=== PATIENT | female | born 1975 | race Caucasian/White ===

== ENCOUNTER 2021-11-25 12:05 | Emergency (ER) | payer BC, SELFPAY ==
[2021-11-25 12:20] VITALS: BP 109/46; PULSE 70; RESP 16; TEMP 36.4; O2SAT 100; BMI 45.6
--- NOTE | 2021-11-25 12:52 | CRLHL7_ITS ---
For Patients: As a result of the Century Cures Act, medical imaging exams and procedure reports are released immediately into your electronic medical record. You may view this report before your referring provider. If you have questions, please contact your health care provider. INDICATION: Knee pain. TECHNIQUE: Right knee 3 views. COMPARISON: None. FINDINGS: Bones: Alignment is normal. No fractures or bone lesions. Joint spaces: The joint spaces are maintained. Small osseous densities project from the lateral tibial condyle and inferior patella, possibly osteophytes. Soft tissues: Unremarkable. IMPRESSION: No findings to explain pain. Dictated by Wilber Holloway MD @ 11/25/2021 1:23:08 PM (Electronically Signed)
--- NOTE | 2021-11-25 12:55 | ED_ITS ---
HPI - General Adult General Time Seen by Provider: 12:55 Date Seen: 11/25/21 Chief complaint: Extremity Pain/Injury, Lower Stated complaint: Right knee pain Time Seen by Provider: 11/25/21 12:11 Source: patient Mode of arrival: ambulatory Limitations: no limitations History of Present Illness HPI narrative: Patient is a 38-year-old female who reports an accident about 5 months ago she strained her knee, and has been hurting ever since, she finally decided to see a doctor so came to the emergency department. The patient reports no leg swelling or knee swelling, but does have medial joint line pain. 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 No history of surgery on the knee. She denies allergies to medications is generally healthy Related Data Previous Rx's Medication Instructions Recorded ketorolac 10 mg tablet 10 mg PO Q8H #15 tabs 11/25/21 Allergies Allergy/AdvReac Type Severity Reaction Status Date / Time No Known Drug Allergies Allergy Verified 11/25/21 12:20 Review of Systems Status of ROS: Reports: 6 or more systems reviewed and unremarkable except as noted in History and below PFSH PFSH Social History Smoking Status: Never smoker Do you use any of these nicotine containing products: None Second hand tobacco smoke exposure: No How often do you have a drink containing alcohol: never How often do you have six or more drinks on one occasion: Never AUDIT-C Alcohol total score: 0 Non-prescribed substance use: denies use service: No Exam Narrative: Exam Narrative: Objective: The patient has very limited range of motion of the right knee no effusion, she does not appear in marked distress, vital signs unremarkable she is afebrile, there is no redness or warmth of the knee no effusion distal CMS is intact Range of motion of the knee is very limited to flexion-extension she likes to keep it in about 15? of flexion there is some mild medial joint line pain on the right knee distal CMS intact, no calf or ankle swelling or tenderness Const: Vital Signs, click to edit/add: Vital Signs - 24 hr 11/25/21 12:20 Temperature 97.6 F Pulse Rate [Pulse Oximeter] 70 Respiratory Rate 16 Blood Pressure [Le ft Upper Arm] 109/46 L Pulse Oximetry 100 Oxygen Delivery Me thod Room Air Course Vital Signs Vital signs: Initial Vital Signs Temperature 97.6 F 11/25/21 12:20 Temperature Source Temporal Artery Scan 11/25/21 12:20 Pulse Rate 70 11/25/21 12:20 Pulse Rhythm 11/25/21 12:20 Respiratory Rate 16 11/25/21 12:20 Blood Pressure 109/46 L 11/25/21 12:20 Blood Pressure Mean 67 11/25/21 12:20 Blood Pressure Position Supine 11/25/21 12:20 Pulse Oximetry 100 11/25/21 12:20 Oxygen Delivery Method 11/25/21 12:20 Vital Signs Temperature 97.6 F 11/25/21 12:20 Pulse Rate 70 11/25/21 12:20 Respiratory Rate 16 11/25/21 12:20 Blood Pressure 109/46 L 11/25/21 12:20 Pulse Oximetry 100 11/25/21 12:20 Oxygen Delivery Method 11/25/21 12:20 Temperature 97.6 F 11/25/21 12:20 Pulse Rate 70 11/25/21 12:20 Respiratory Rate 16 11/25/21 12:20 Blood Pressure 109/46 L 11/25/21 12:20 Pulse Oximetry 100 11/25/21 12:20 Oxygen Delivery Method 11/25/21 12:20 Medical Decision Making MDM Narrative Medical decision making narrative: Given the patient's history of knee discomfort would get an x-ray of her knee, knee immobilizer, crutches, will give her Toradol 10 mg orally. She needs to see Orthopedics for follow-up, nonweightbearing, crutches, knee immobilizer, icing on a regular basis, Toradol as needed at home, and will give her prescription for this for several days, orthopedic followup will be arranged within the next 5-7 days Addendum: Patient x-rays of the knee by my review look unremarkable other than some degenerative change, she has a posterior fabella. No dislocation. Patient will be given crutches knee immobilizer will be discharged to home on Toradol as needed up, will have staff set up an ortho appointment for the patient within e next 3-5 days light activity recommended ice on the knee Discharge Plan Discharge Clinical Impression: Acute knee pain Patient Disposition: Home, Self-Care Condition: Stable Additional Instructions: Nonweightbearing, use the crutches, using the immobilizer, icing 10 minutes 4 to 5 times a day to the affected area the knee that is tender Toradol 10 mg t.i.d. as needed for 3 days, then may transition to Tylenol or Advil, please set up an orthopedic appointment with the PA in the next 3-5 days for the patient Activity Level: No Weight Bearing Activity Detail: No weight-bearing on the affected knee Discharge Diet: Regular Prescriptions: New ketorolac 10 mg tablet 10 mg PO Q8H Qty: 15 0RF Follow Up/Referrals: Provider,Not a Local [Primary Care Provider] - Stand Alone Forms: [facility] Info Instructions
[2021-11-25] MEDS: KETOROLAC 10 MG TABLET PO (13:13)
--- NOTE | 2021-11-25 14:33 | ED.NURSE ---
all communication done via staff interpreter on a stick
== END 2021-11-25 14:25 | disposition home or self-care (01) ==
PROVIDERS: Emergency Provider Family Medicine
DX: M25.561 Pain in right knee (principal)
CPT/HCPCS: 73562; 99284; A9270

== ENCOUNTER 2022-02-04 09:43 | Outpatient (CLI) | payer BC, SELFPAY ==
--- NOTE | 2022-02-04 09:45 | CRLHL7_ITS ---
For Patients: As a result of the Century Cures Act, medical imaging exams and procedure reports are released immediately into your electronic medical record. You may view this report before your referring provider. If you have questions, please contact your health care provider. BILATERAL DIAGNOSTIC MAMMOGRAM WITH COMPUTER-AIDED DETECTION AND TOMOSYNTHESIS RIGHT BREAST ULTRASOUND CLINICAL HISTORY: RIGHT outer breast pain, most severe at the 9 o???clock position. No lump. TECHNIQUE: These mammographic images have been obtained using full-field digital technique. These mammographic images were interpreted with the benefit of computer-aided detection. Breast Tomosynthesis was used in this interpretation. RIGHT breast ultrasound was performed. COMPARISON FILM: None. BREAST COMPOSITION: There are scattered areas of fibroglandular density. FINDINGS: No mass, suspicious microcalcifications, architectural distortion, skin thickening, or other suspicious findings. Targeted RIGHT breast ultrasound in the outer RIGHT breast specifically at the 9 o???clock position 9 cm from the nipple is unremarkable. IMPRESSION: 1. No mammographic evidence of malignancy. 2. Targeted RIGHT outer breast ultrasound is unremarkable. ASSESSMENT: BI-RADS Category 1: Negative RECOMMENDATION: Recommend clinical follow-up and annual screening mammography. A lay language report of this examination will be provided to the patient. Cleveland Lambert M.D. Diagnostic/Musculoskeletal Radiologist [email or web address] BANDAR/pollo PT/Dictated by: Cleveland Lambert MD @ 02/04/2022 11:46:00 AM (Electronically Signed)
--- NOTE | 2022-02-04 10:15 | CRLHL7_ITS ---
For Patients: As a result of the Cures Act, medical imaging exams and procedure reports are released immediately into your electronic medical record. You may view this report before your referring provider. If you have questions, please contact your health care provider. PLEASE SEE BILATERAL DIAGNOSTIC MAMMOGRAM SAME DAY. CRL:pollo PT/Dictated by: Cleveland Lambert MD @ 02/04/2022 11:50:00 AM (Electronically Signed)
== END 2022-02-04 09:44 | disposition home or self-care (01) ==
LOC: MAMMO 09:46
PROVIDERS: Visit Provider Obstetrics & Gynecology
DX: N64.4 Mastodynia (principal)
CPT/HCPCS: 76642; 77066; G0279

== ENCOUNTER 2022-05-11 20:53 | Emergency (ER) | payer SELFPAY ==
[2022-05-11 21:10] VITALS: BP 141/81; PULSE 78; RESP 14; TEMP 36.4; O2SAT 100; BMI 41.0
[2022-05-11 21:29] LABS: Appearance Urine Slightly Cloudy (Clear); Bilirubin Urine Negative (Negative); Blood Urine Negative (Negative); Color Urine Yellow (Yellow); Glucose Urine 3+ (Negative); Ketones Urine Negative (Negative); Leukocyte Esterase Urine Negative (Negative); Nitrite Urine Negative (Negative); Protein Urine Negative (Negative); Specific Gravity Urine <= 1.005 (1.000-1.030); Urobilinogen Urine 0.2 (0.2-1.0); pH Urine 5.5 (5.0-8.5)
--- NOTE | 2022-05-11 21:38 | ED.GENADULT ---
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 For the last 2 weeks she has had a bitemporal headache with mild nausea, also night urinary frequency, some blurred vision. Has been checking her blood sugar with friends meter and notes is been high, over 500 tonight. Patient has no prior history or diagnosis of diabetes. Denies abdominal pain or vomiting. No diarrhea. No numbness or tingling in arms or legs. She has been taking Tylenol for her headaches with minimal improvement. Related Data Home Medications Medication Instructions Recorded Confirmed acetaminophen 325 mg capsule 325 mg PO ONCE PRN 01/31/22 01/31/22 (Tylenol) ibuprofen 400 mg tablet 400 mg PO Q8H 01/31/22 01/31/22 Previous Rx's Medication Instructions Recorded metformin 500 mg tablet 500 mg PO BID #60 tabs 05/11/22 Allergies Allergy/AdvReac Type Severity Reaction Status Date / Time No Known Drug Allergies Allergy Verified 01/31/22 13:11 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, no alcohol Smoking Status: Never smoker Do you use any of these nicotine containing products: None Second hand tobacco smoke exposure: No How often do you have a drink containing alcohol: never How often do you have six or more drinks on one occasion: Never AUDIT-C Alcohol total score: 0 Non-prescribed substance use: denies use service: No Exam Narrative: Exam Narrative: General: Well-developed and well-nourished, no acute distress Head: Atraumatic and normocephalic Eyes: Pupils are equal reactive, extraocular motions intact, conjunctiva clear ENT: External nose and ears are normal, posterior pharynx without erythema or exudate Neck: No midline cervical tenderness, full spontaneous range of motion the neck, trachea midline, no adenopathy Heart: Regular rate and rhythm no murmurs or thrills Lungs: Clear to auscultation bilaterally without wheezes or crackles Abdomen: Soft, nontender, nondistended with active bowel sounds Musculoskeletal: No tenderness, deformity, or edema Neurologic: Awake, alert, and oriented x3, no gross focal neurologic deficits, cranial nerves intact as tested Psych: Mood and affect are appropriate Skin: No rashes Const: Vital Signs, click to edit/add: Vital Signs - 24 hr 05/11/22 21:10 Temperature 97.6 F Pulse Rate [Pulse Oximeter] 78 Respiratory Rate 14 Blood Pressure [Le ft Upper Arm] 141/81 H Pulse Oximetry 100 Oxygen Delivery Me thod Room Air Course Course Hospital Course: Patient presents today with headache, frequent urination, nausea. Reports elevated blood sugars on a friend's meter for the last 2 weeks. On exam here, vitally stable, no abdominal tenderness, neurologically intact. No history of head injury, head CT is not indicated at this time. Symptoms are most consistent with undiagnosed nor newly diagnosed diabetes. Labs and fluids are ordered, Toradol and Zofran for pain and nausea. If labs not demonstrate evidence for DKA and headache is improved after treatment, patient be started on metformin and close follow-up primary care improved. Reevaluation(s) Reevaluation #1: Labs independently interpreted by me demonstrate mild leukocytosis, urinalysis with glucose but no ketones. Remaining labs are pending. Time: 22:07 Reevaluation #2: Repeat blood glucose is improved and patient is stable for discharge. No evidence of DKA or HHS, renal function reassuring, hepatic panel is normal. Time: 23:53 Vital Signs Vital signs: Initial Vital Signs Temperature 97.6 F 05/11/22 21:10 Temperature Source Temporal Artery Scan 05/11/22 21:10 Pulse Rate 78 05/11/22 21:10 Pulse Rhythm 05/11/22 21:10 Respiratory Rate 14 05/11/22 21:10 Blood Pressure 141/81 H 05/11/22 21:10 Blood Pressure Mean 101 05/11/22 21:10 Blood Pressure Position Sitting 05/11/22 21:10 Pulse Oximetry 100 05/11/22 21:10 Oxygen Delivery Method 05/11/22 21:10 Vital Signs Temperature 97.6 F 05/11/22 21:10 Pulse Rate 78 05/11/22 21:10 Respiratory Rate 14 05/11/22 21:10 Blood Pressure 141/81 H 05/11/22 21:10 Pulse Oximetry 100 05/11/22 21:10 Oxygen Delivery Method 05/11/22 21:10 Temperature 97.6 F 05/11/22 21:10 Pulse Rate 78 05/11/22 21:10 Respiratory Rate 14 05/11/22 21:10 Blood Pressure 141/81 H 05/11/22 21:10 Pulse Oximetry 100 05/11/22 21:10 Oxygen Delivery Method 05/11/22 21:10 Medical Decision Making Lab Data Labs: Lab Results 05/11/22 05/11/22 05/11/22 Range/Units 21:20 21:50 21:50 WBC 3.63 L (4.50-11.00) K/uL RBC 4.58 (4.00-5.20) m/uL Hgb 11.8 L (12.0-16.0) gm/dL Hct 34.1 (33.0-51.0) % MCV 75 L (80-100) fL MCH 26 (26-34) pg MCHC 35 (32-36) gm/dL RDW Coeff of [place] 14.4 (11.5-15.5) % Plt Count 107 L (140-440) K/uL Neut % (Auto) 59.4 (42.0-72.0) % Lymph % (Auto) 28.9 (20-44) % Cache % (Auto) 8.3 (0.0-11.0) % Eos % (Auto) 2.5 (0.0-7.0) % Baso % (Auto) 0.6 (0.0-3.0) % Neut # (Auto) 2.20 (1.7-7.0) K/uL Lymph # (Auto) 1.00 (0.90-2.90) K/uL Cache # (Auto) 0.30 (0.00-0.90) K/UL Eos # (Auto) 0.10 (0.00-0.50) K/uL Baso # (Auto) 0.00 (0.00-0.30) K/uL Sodium 133 L (135-149) mmol/L Potassium 3.8 (3.6-5.1) mmol/L Chloride 101 (96-114) mmol/L Carbon Dioxide 23 (20-32) mmol/L BUN 9 (5-24) mg/dL Creatinine 0.4 L (0.5-1.5) mg/dL Estimated Creat Clear 225.39 Estimated GFR 122 ml/min Glucose 538 H* (60-115) mg/dL Hemoglobin A1c (0-5.6) % Calcium 8.6 (8.4-10.6) mg/dL Total Bilirubin (0.1-1.5) mg/dL Direct Bilirubin (0.0-0.5) mg/dL AST (12-35) U/L ALT (4-35) U/L Alkaline Phosphatase (40-150) U/L Total Protein (6.0-8.3) g/dL Albumin (3.3-5.0) g/dL Urine Color Yellow (Yellow) Urine Appearance Slightly Cloudy A (Clear) Urine pH 5.5 (5.0-8.5) Ur Specific [place] <= 1.005 (1.000-1.030) Urine Protein Negative (Negative) Urine Glucose (UA) 3+ A (Negative) Urine Ketones Negative (Negative) Urine Blood Negative (Negative) Urine Nitrite Negative (Negative) Urine Bilirubin Negative (Negative) Urine Urobilinogen 0.2 (0.2-1.0) Ur Leukocyte Esterase Negative (Negative) Urine RBC 0-2 (0-2) Urine WBC 0-2 (0-5) Ur Squamous Epith Cells Few (None-Few) Urine Bacteria None (None) 05/11/22 05/11/22 Range/Units 21:50 21:50 WBC (4.50-11.00) K/uL RBC (4.00-5.20) m/uL Hgb (12.0-16.0) gm/dL Hct (33.0-51.0) % MCV (80-100) fL MCH (26-34) pg MCHC (32-36) gm/dL RDW Coeff of [place] (11.5-15.5) % Plt Count (140-440) K/uL Neut % (Auto) (42.0-72.0) % Lymph % (Auto) (20-44) % Cache % (Auto) (0.0-11.0) % Eos % (Auto) (0.0-7.0) % Baso % (Auto) (0.0-3.0) % Neut # (Auto) (1.7-7.0) K/uL Lymph # (Auto) (0.90-2.90) K/uL Cache # (Auto) (0.00-0.90) K/UL Eos # (Auto) (0.00-0.50) K/uL Baso # (Auto) (0.00-0.30) K/uL Sodium (135-149) mmol/L Potassium (3.6-5.1) mmol/L Chloride (96-114) mmol/L Carbon Dioxide (20-32) mmol/L BUN (5-24) mg/dL Creatinine (0.5-1.5) mg/dL Estimated Creat Clear Estimated GFR ml/min Glucose (60-115) mg/dL Hemoglobin A1c 10.39 H (0-5.6) % Calcium (8.4-10.6) mg/dL Total Bilirubin 0.6 (0.1-1.5) mg/dL Direct Bilirubin 0.2 (0.0-0.5) mg/dL AST 43 H (12-35) U/L ALT 45 H (4-35) U/L Alkaline Phosphatase 133 (40-150) U/L Total Protein 8.2 (6.0-8.3) g/dL Albumin 4.2 (3.3-5.0) g/dL Urine Color (Yellow) Urine Appearance (Clear) Urine pH (5.0-8.5) Ur Specific [place] (1.000-1.030) Urine Protein (Negative) Urine Glucose (UA) (Negative) Urine Ketones (Negative) Urine Blood (Negative) Urine Nitrite (Negative) Urine Bilirubin (Negative) Urine Urobilinogen (0.2-1.0) Ur Leukocyte Esterase (Negative) Urine RBC (0-2) Urine WBC (0-5) Ur Squamous Epith Cells (None-Few) Urine Bacteria (None) Discharge Plan Discharge Clinical Impression: Diabetes mellitus, new onset Patient Disposition: Home, Self-Care Condition: Stable Instructions: Type 2 Diabetes in Adults: New Diagnosis (DC), Meal Planning with the Plate Method (DC), Diabetes and Nutrition (ED), How to Check your Blood Sugar (ED) Additional Instructions: Start taking metformin for diabetes as prescribed. Follow-up with your doctor this week for further treatment. Activity Level: No Restrictions Discharge Diet: Diabetic Prescriptions: New metformin 500 mg tablet 500 mg PO BID Qty: 60 2RF No Action acetaminophen [Tylenol] 325 mg capsule 325 mg PO ONCE PRN ibuprofen 400 mg tablet 400 mg PO Q8H Follow Up/Referrals: Provider,Not a Local [Primary Care Provider] - Stand Alone Forms: [employer] Info Instructions
[2022-05-11 21:41] LABS: RBC Urine 0-2 (0-2); Squamous Epithelial Cell Urine Few (None-Few); WBC Urine 0-2 (0-5)
[2022-05-11 21:55] LABS: Basophils Percent Auto 0.6 % (0.0-3.0); Eosinophils Percent Auto 2.5 % (0.0-7.0); Hematocrit 34.1 % (33.0-51.0); Hemoglobin* 11.8 gm/dL (12.0-16.0); Immature Granulocytes Pct Auto 0.3 %; Lymphocytes Percent Auto 28.9 % (20-44); Mean Corpuscular HGB Conc 35 gm/dL (32-36); Mean Corpuscular Hemoglobin 26 pg (26-34); Mean Corpuscular Volume 75 fL (80-100); Monocytes Percent Auto 8.3 % (0.0-11.0); Neutrophils Percent Auto 59.4 % (42.0-72.0); Platelet Count* 107 K/uL (140-440); RDW Coefficient of Variation % 14.4 % (11.5-15.5); Red Blood Count 4.58 m/uL (4.00-5.20); Slide Review Reflex No; White Blood Count* 3.63 K/uL (4.50-11.00)
[2022-05-11] MEDS: KETOROLAC 15 MG/ML inj IVP (21:56)
[2022-05-11] MEDS: ONDANSETRON 2 MG/ML inj 4 MG IVP (21:56)
[2022-05-11] MEDS: 0.9 % SODIUM CHLORIDE 1000 ml 1,000 ML IV (21:57)
[2022-05-11 22:11] LABS: Chloride* 101 mmol/L (96-114); Potassium* 3.8 mmol/L (3.6-5.1); Sodium* 133 mmol/L (135-149)
[2022-05-11 22:12] LABS: Albumin* 4.2 g/dL (3.3-5.0)
[2022-05-11 22:14] LABS: Blood Urea Nitrogen* 9 mg/dL (5-24); Carbon Dioxide* 23 mmol/L (20-32); Creatinine* 0.4 mg/dL (0.5-1.5); Est. Creatinine Clearance* 225.39; Estimated Glomerular Filt Rate 122 ml/min
[2022-05-11 22:15] LABS: Alkaline Phosphatase* 133 U/L (40-150); Aspartate Amino Transferase* 43 U/L (12-35); Bilirubin Direct* 0.2 mg/dL (0.0-0.5); Bilirubin Total* 0.6 mg/dL (0.1-1.5); Calcium* 8.6 mg/dL (8.4-10.6); Total Protein* 8.2 g/dL (6.0-8.3)
[2022-05-11 22:16] LABS: Alanine Aminotransferase* 45 U/L (4-35)
[2022-05-11 22:23] LABS: Glucose* 538 mg/dL (60-115)
--- NOTE | 2022-05-11 22:23 | ED.NURSE ---
Critical result received from lab: glucose 538. updated.
[2022-05-11 22:30] VITALS: BP 114/77; PULSE 69; RESP 16; O2SAT 99
[2022-05-11 23:00] VITALS: BP 129/72; PULSE 67; RESP 18; O2SAT 97
[2022-05-11 23:11] LABS: Hemoglobin A1C* 10.39 % (0-5.6)
== END 2022-05-12 00:10 | disposition home or self-care (01) ==
PROVIDERS: Emergency Provider Family Medicine
DX: E11.65 Type 2 diabetes mellitus with hyperglycemia (principal)
CPT/HCPCS: 36415; 80048; 80076; 81001; 82962; 83036; 85025; 96361; 96374; 96375; 99284; J1885; J2405; J7030

== ENCOUNTER 2022-06-09 21:25 | Emergency (ER) | payer SELFPAY ==
[2022-06-09 21:43] VITALS: BP 161/93; PULSE 84; RESP 18; TEMP 36.7; O2SAT 99; BMI 35.9
--- NOTE | 2022-06-09 21:46 | ED.GENADULT ---
HPI - General Adult General Time Seen by Provider: 21:46 Date Seen: 06/09/22 Chief complaint: Heartburn/Gastritis Stated complaint: Vomiting blood,Chest Pain Time Seen by Provider: 06/09/22 21:46 Source: patient, family, RN notes reviewed, old records reviewed and personal loan specialist Mode of arrival: ambulatory Limitations: language barrier History of Present Illness HPI narrative: 46-year-old female with recently diagnosed diabetes who comes in today with nausea, vomiting, mid abdominal pain. Patient notes that this evening about an hour prior to coming the emergency department she vomited with some blood. She has upper abdominal pain. No diarrhea. She has had similar in the past but not for little while. Does not take any medication for this. Some lightheadedness yesterday along with a headache. Denies black or tarry stools. Related Data Home Medications Medication Instructions Recorded Confirmed ibuprofen 400 mg tablet 400 mg PO Q8H 01/31/22 06/09/22 pantoprazole 40 mg tablet,delayed 40 mg PO DAILY 06/04/22 06/09/22 release Previous Rx's Medication Instructions Recorded metformin 500 mg tablet 500 mg PO BID #60 tabs 05/11/22 sucralfate 1 gram tablet (Carafate) 1 g PO QID #40 tabs 06/09/22 Allergies Allergy/AdvReac Type Severity Reaction Status Date / Time No Known Drug Allergies Allergy Verified 06/09/22 21:46 Review of Systems Status of ROS: Reports: 10 or more systems reviewed and unremarkable except as noted in History and below PFSH PFS Surgical History History of section History of laparoscopic cholecystectomy History of lumbar surgery History of tubal ligation Social History , CLAIR) Narrative: , 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, 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, 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, 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 Smoking Status: Never smoker Do you use any of these nicotine containing products: None Second hand tobacco smoke exposure: No How often do you have a drink containing alcohol: never How often do you have six or more drinks on one occasion: Never AUDIT-C Alcohol total score: 0 Non-prescribed substance use: denies use service: No Exam Narrative: Exam Narrative: General: Well-developed and well-nourished, no acute distress Head: Atraumatic and normocephalic Eyes: Pupils are equal reactive, extraocular motions intact, conjunctiva clear ENT: External nose and ears are normal, posterior pharynx without erythema or exudate Neck: No midline cervical tenderness, full spontaneous range of motion the neck, trachea midline, no adenopathy Heart: Tachycardic but regular Lungs: Clear to auscultation bilaterally without wheezes or crackles Abdomen: Soft, epigastric and diffuse upper abdominal tenderness, nondistended with active bowel sounds Musculoskeletal: No tenderness, deformity, or edema Neurologic: Awake, alert, and oriented x3, no gross focal neurologic deficits, cranial nerves intact as tested Psych: Mood and affect are appropriate Skin: No rashes Const: Vital Signs, click to edit/add: Vital Signs - 24 hr 06/09/22 21:43 06/09/22 22:27 06/09/22 21:55 Temperature 98.0 F Pulse Rate [Right Pulse Oximeter] 84 94 Respiratory Rate 18 18 Blood Pressure [Ri ght Upper Arm] 161/93 H 148/78 H Pulse Oximetry 99 98 97 Oxygen Delivery Me thod Room Air Course Course Hospital Course: Patient seen examined, prior records reviewed. Patient presents with upper abdominal pain and vomiting with some blood. On exam here, tachycardic, appears uncomfortable, upper abdominal tenderness. Recent diagnosis of diabetes, has a history of reflux. Symptoms could be from gastritis or early ulcer, consider pancreatitis as well. Labs, fluids, Zofran, Dilaudid, and Protonix as well as CT scan are ordered. Reevaluation(s) Reevaluation #1: Labs independently interpreted by me demonstrate hemoglobin 11.8 which is stable from prior visit, normal white blood cell count. Basic panel demonstrates elevated glucose, otherwise reassuring. Hepatic function panel with normal bilirubin, slight elevation in the AST and ALT but alkaline phosphatase is normal and lipase is normal. Urinalysis without ketones, no evidence for DKA. CT scan is pending. Suspect acute gastritis or possible early ulcer. As patient is finally stable here with no further episodes of hematemesis, if CT scan is reassuring patient can be discharged with outpatient follow-up. Time: 22:45 Reevaluation #2: CT scan independently interpreted by me does not demonstrate any acute inflammatory changes around the pancreas, stomach is full, no obstruction. Radiologist notes mild thickening of the greater curvature which may reflect gastritis. This certainly is consistent with patient's symptoms. She is stable for discharge with Zofran, Carafate, continue Protonix and follow up with primary care. Time: 23:33 Vital Signs Vital signs: Initial Vital Signs Temperature 98.0 F 06/09/22 21:43 Temperature Source Temporal Artery Scan 06/09/22 21:43 Pulse Rate 84 06/09/22 21:43 Respiratory Rate 18 06/09/22 21:43 Blood Pressure 161/93 H 06/09/22 21:43 Blood Pressure Mean 115 06/09/22 21:43 Blood Pressure Position Sitting 06/09/22 21:43 Pulse Oximetry 99 06/09/22 21:43 Oxygen Delivery Method 06/09/22 21:43 Vital Signs Temperature 98.0 F 06/09/22 21:43 Pulse Rate 84 06/09/22 21:43 Respiratory Rate 18 06/09/22 21:43 Blood Pressure 161/93 H 06/09/22 21:43 Pulse Oximetry 99 06/09/22 21:43 Oxygen Delivery Method 06/09/22 21:43 Temperature 98.0 F 06/09/22 21:43 Pulse Rate 94 06/09/22 22:27 Respiratory Rate 18 06/09/22 22:27 Blood Pressure 148/78 H 06/09/22 22:27 Pulse Oximetry 98 06/09/22 22:27 Oxygen Delivery Method 06/09/22 21:43 Medical Decision Making Medical Records Medical records reviewed: Yes I reviewed the patient's medical records Lab Data Lab results reviewed: Yes I reviewed the patient's lab results Labs: Lab Results 06/09/22 06/09/22 06/09/22 Range/Units 21:45 21:45 21:45 WBC 5.91 (4.50-11.00) K/uL RBC 4.62 (4.00-5.20) m/uL Hgb 11.8 L (12.0-16.0) gm/dL Hct 34.8 (33.0-51.0) % MCV 75 L (80-100) fL MCH 26 (26-34) pg MCHC 34 (32-36) gm/dL RDW Coeff of [place]illa 14.5 (11.5-15.5) % Plt Count 115 L (140-440) K/uL Neut % (Auto) 79.9 H (42.0-72.0) % Lymph % (Auto) 10.5 L (20-44) % Miner % (Auto) 8.6 (0.0-11.0) % Eos % (Auto) 0.7 (0.0-7.0) % Baso % (Auto) 0.3 (0.0-3.0) % Neut # (Auto) 4.70 (1.7-7.0) K/uL Lymph # (Auto) 0.60 L (0.90-2.90) K/uL Miner # (Auto) 0.50 (0.00-0.90) K/UL Eos # (Auto) 0.04 (0.00-0.50) K/uL Baso # (Auto) 0.02 (0.00-0.30) K/uL VBG pH 7.389 (7.32-7.43) VBG pCO2 46 (40-50) mmHG VBG pO2 32.0 (25-47) mmHG VBG HCO3 28 (21-28) mmol/L Sodium (135-149) mmol/L Potassium (3.6-5.1) mmol/L Chloride (96-114) mmol/L Carbon Dioxide (20-32) mmol/L BUN (5-24) mg/dL Creatinine (0.5-1.5) mg/dL Estimated Creat Clear Estimated GFR ml/min Glucose (60-115) mg/dL Calcium (8.4-10.6) mg/dL Total Bilirubin (0.1-1.5) mg/dL Direct Bilirubin (0.0-0.5) mg/dL AST (12-35) U/L ALT (4-35) U/L Alkaline Phosphatase (40-150) U/L Total Protein (6.0-8.3) g/dL Albumin (3.3-5.0) g/dL Lipase (23-300) U/L Urine Color (Yellow) Urine Appearance (Clear) Urine pH (5.0-8.5) Ur Specific [place] (1.000-1.030) Urine Protein (Negative) Urine Glucose (UA) (Negative) Urine Ketones (Negative) Urine Blood (Negative) Urine Nitrite (Negative) Urine Bilirubin (Negative) Urine Urobilinogen (0.2-1.0) Ur Leukocyte Esterase (Negative) Urine RBC (0-2) Urine WBC (0-5) Ur Squamous Epith Cells (None-Few) Urine Bacteria (None) Blood Type O Positive Antibody Screen NEGATIVE 06/09/22 06/09/22 Range/Units 21:45 22:18 WBC (4.50-11.00) K/uL RBC (4.00-5.20) m/uL Hgb (12.0-16.0) gm/dL Hct (33.0-51.0) % MCV (80-100) fL MCH (26-34) pg MCHC (32-36) gm/dL RDW Coeff of Kamilla (11.5-15.5) % Plt Count (140-440) K/uL Neut % (Auto) (42.0-72.0) % Lymph % (Auto) (20-44) % Miner % (Auto) (0.0-11.0) % Eos % (Auto) (0.0-7.0) % Baso % (Auto) (0.0-3.0) % Neut # (Auto) (1.7-7.0) K/uL Lymph # (Auto) (0.90-2.90) K/uL Miner # (Auto) (0.00-0.90) K/UL Eos # (Auto) (0.00-0.50) K/uL Baso # (Auto) (0.00-0.30) K/uL VBG pH (7.32-7.43) VBG pCO2 (40-50) mmHG VBG pO2 (25-47) mmHG VBG HCO3 (21-28) mmol/L Sodium 136 (135-149) mmol/L Potassium 3.5 L (3.6-5.1) mmol/L Chloride 103 (96-114) mmol/L Carbon Dioxide 27 (20-32) mmol/L BUN 10 (5-24) mg/dL Creatinine 0.5 (0.5-1.5) mg/dL Estimated Creat Clear 157.65 Estimated GFR 116 ml/min Glucose 249 H (60-115) mg/dL Calcium 8.8 (8.4-10.6) mg/dL Total Bilirubin 0.7 (0.1-1.5) mg/dL Direct Bilirubin 0.2 (0.0-0.5) mg/dL AST 49 H (12-35) U/L ALT 46 H (4-35) U/L Alkaline Phosphatase 122 (40-150) U/L Total Protein 8.4 H (6.0-8.3) g/dL Albumin 4.3 (3.3-5.0) g/dL Lipase 99 (23-300) U/L Urine Color Yellow (Yellow) Urine Appearance Slightly Cloudy A (Clear) Urine pH 6.0 (5.0-8.5) Ur Specific [place] 1.015 (1.000-1.030) Urine Protein Negative (Negative) Urine Glucose (UA) Trace A (Negative) Urine Ketones Negative (Negative) Urine Blood 2+ A (Negative) Urine Nitrite Negative (Negative) Urine Bilirubin Negative (Negative) Urine Urobilinogen 1.0 (0.2-1.0) Ur Leukocyte Esterase Trace A (Negative) Urine RBC 5-10 A (0-2) Urine WBC 2-5 (0-5) Ur Squamous Epith Cells Few (None-Few) Urine Bacteria Few A (None) Blood Type Antibody Screen Discharge Plan Discharge Clinical Impression: Gastritis Patient Disposition: Home, Self-Care Condition: Stable Instructions: Gastritis (DC), Diet for Stomach Ulcers and Gastritis (ED) Additional Instructions: Continue Protonix (pantoprazole) Avoid caffeine and carbonated beverages Avoid alcohol Do not take nonsteroidal anti-inflammatories such as ibuprofen Start Carafate Activity Level: No Restrictions Discharge Diet: Diabetic Prescriptions: New sucralfate [Carafate] 1 gram tablet 1 g PO QID Qty: 40 0RF No Action ibuprofen 400 mg tablet 400 mg PO Q8H pantoprazole 40 mg tablet,delayed release (DR/EC) 40 mg PO DAILY metformin 500 mg tablet 500 mg PO BID Qty: 60 2RF Follow Up/Referrals: Provider,Not a Local [Primary Care Provider] - Stand Alone Forms: [employer] Info Instructions
[2022-06-09 21:55] VITALS: O2SAT 97
--- NOTE | 2022-06-09 21:55 | CRLHL7_ITS ---
For Patients: As a result of the Century Cures Act, medical imaging exams and procedure reports are released immediately into your electronic medical record. You may view this report before your referring provider. If you have questions, please contact your health care provider. INDICATION: Upper abdominal pain, vomiting. TECHNIQUE: CT abdomen and pelvis acquired with 79 mL Isovue 370 contrast. COMPARISON: CT abdomen/pelvis dated 03/26/2021. FINDINGS: Lower chest: No focal consolidation. Liver: Mild nodularity of the liver contour, compatible with cirrhotic changes. Gallbladder and bile ducts: Postcholecystectomy. Pancreas: Unremarkable. Spleen: Unremarkable. Adrenal glands: Unremarkable. Kidneys: Kidneys enhance symmetrically, without hydronephrosis. Retroperitoneum: No lymphadenopathy. Bowel and mesentery: The bowel is nonobstructed. Normal appendix. No significant ascites. No hiatal hernia. Mild thickening of the greater curvature of the stomach. No pneumoperitoneum. Bladder: Unremarkable for degree of distension. Reproductive organs: Unremarkable. Pelvic lymph nodes: No lymphadenopathy. Vessels: Few scattered atherosclerotic calcifications. Abdominal wall: No acute abdominal wall abnormality. Bones: Severe multilevel degenerative changes of the spine. Postsurgical changes in the posterior elements of the thoracolumbar spine. IMPRESSION: 1. Mild thickening of the greater curvature of the stomach, nonspecific, may reflect gastritis. 2. Morphologic sequelae of cirrhosis. Please note that all CT scans at this facility use dose modulation, iterative reconstruction, and/or weight-based dosing when appropriate to reduce radiation dose to as low as reasonably achievable. Dictated by William Malone MD @ 06/09/2022 11:32:23 PM (Electronically Signed)
[2022-06-09 22:08] LABS: HCO3 VBG 28 mmol/L (21-28); PCO2 VBG 46 mmHG (40-50); pH VBG 7.389 (7.32-7.43)
[2022-06-09 22:11] LABS: Basophils Absolute Auto 0.02 K/uL (0.00-0.30); Basophils Percent Auto 0.3 % (0.0-3.0); Eosinophils Absolute Auto 0.04 K/uL (0.00-0.50); Eosinophils Percent Auto 0.7 % (0.0-7.0); Hematocrit 34.8 % (33.0-51.0); Hemoglobin* 11.8 gm/dL (12.0-16.0); Lymphocytes Percent Auto 10.5 % (20-44); Mean Corpuscular HGB Conc 34 gm/dL (32-36); Mean Corpuscular Hemoglobin 26 pg (26-34); Mean Corpuscular Volume 75 fL (80-100); Monocytes Percent Auto 8.6 % (0.0-11.0); Neutrophils Percent Auto 79.9 % (42.0-72.0); Platelet Count* 115 K/uL (140-440); RDW Coefficient of Variation % 14.5 % (11.5-15.5); Red Blood Count 4.62 m/uL (4.00-5.20); Slide Review Reflex No; White Blood Count* 5.91 K/uL (4.50-11.00)
[2022-06-09 22:25] LABS: Albumin* 4.3 g/dL (3.3-5.0)
[2022-06-09 22:26] LABS: Chloride* 103 mmol/L (96-114); Potassium* 3.5 mmol/L (3.6-5.1); Sodium* 136 mmol/L (135-149)
[2022-06-09 22:27] VITALS: BP 148/78; PULSE 94; RESP 18; O2SAT 98
[2022-06-09 22:28] LABS: Appearance Urine Slightly Cloudy (Clear); Bilirubin Urine Negative (Negative); Blood Urine 2+ (Negative); Color Urine Yellow (Yellow); Glucose Urine Trace (Negative); Ketones Urine Negative (Negative); Leukocyte Esterase Urine Trace (Negative); Nitrite Urine Negative (Negative); Protein Urine Negative (Negative); Specific Gravity Urine 1.015 (1.000-1.030)
[2022-06-09 22:28] LABS: Alkaline Phosphatase* 122 U/L (40-150); Aspartate Amino Transferase* 49 U/L (12-35); Bilirubin Direct* 0.2 mg/dL (0.0-0.5); Bilirubin Total* 0.7 mg/dL (0.1-1.5); Blood Urea Nitrogen* 10 mg/dL (5-24); Carbon Dioxide* 27 mmol/L (20-32); Creatinine* 0.5 mg/dL (0.5-1.5); Est. Creatinine Clearance* 157.65; Estimated Glomerular Filt Rate 116 ml/min; Total Protein* 8.4 g/dL (6.0-8.3)
[2022-06-09 22:29] LABS: Alanine Aminotransferase* 46 U/L (4-35); Calcium* 8.8 mg/dL (8.4-10.6); Glucose* 249 mg/dL (60-115); Lipase* 99 U/L (23-300)
[2022-06-09] MEDS: 0.9 % SODIUM CHLORIDE 1000 ml 1,000 ML IV (22:30)
[2022-06-09] MEDS: HYDROmorphone 0.5 mg/0.5 ml inj IVP (22:31)
[2022-06-09] MEDS: ONDANSETRON 2 MG/ML inj 4 MG IVP (22:31)
[2022-06-09] MEDS: PANTOPRAZOLE SODIUM 40 MG INJ IVP (22:31)
[2022-06-09 22:50] LABS: Bacteria Urine Few; Squamous Epithelial Cell Urine Few (None-Few)
== END 2022-06-10 00:03 | disposition home or self-care (01) ==
PROVIDERS: Emergency Provider Family Medicine
DX: K29.70 Gastritis, unspecified, without bleeding (principal)
CPT/HCPCS: 36415; 74177; 80048; 80076; 81001; 82803; 83690; 85025; 86850; 86900; 86901; 87086; 94761; 96361; 96374; 96375; 99284; 99285; C9113; J1170; J2405; J7030; Q9967

== ENCOUNTER 2022-11-19 20:01 | Emergency (ER) | payer SELFPAY ==
[2022-11-19] VITALS (12 sets, daily range): BP systolic 134–150; BP diastolic 70–91; PULSE 83–93; RESP 16–18; TEMP 36.6; O2SAT 98–100; BMI 53.3
--- NOTE | 2022-11-19 20:30 | CRLHL7_ITS ---
For Patients: As a result of the Cures Act, medical imaging exams and procedure reports are released immediately into your electronic medical record. You may view this report before your referring provider. If you have questions, please contact your health care provider. INDICATION: Chest pain. TECHNIQUE: Chest 2 views. COMPARISON: August 25, 2021. FINDINGS: Cardiovascular and mediastinum: Cardiomediastinal silhouette is within normal limits Lungs and pleural spaces: Lungs are clear. No sign of pleural effusion. No pneumothorax. Bones and soft tissues: Fixation rods along the thoracolumbar spine.. Otherwise, unremarkable for age IMPRESSION: No acute cardiopulmonary process identified.. No significant interval change. Dictated by Jennie Akbar MD @ 11/19/2022 8:58:49 PM (Electronically Signed)
--- NOTE | 2022-11-19 20:33 | ED_ITS ---
HPI - General Adult General Time Seen by Provider: 20:33 Date Seen: 11/19/22 Chief complaint: Chest Pain Stated complaint: Chest pain shortness of breath Time Seen by Provider: 11/19/22 20:04 Source: patient and science interpreter Mode of arrival: ambulatory History of Present Illness HPI narrative: Patient is a 47-year-old female with history of diabetes presented emergency department for chest pain. She states she has this chest pain for the past 2 years. Patient states the pains on and off. She states usually when she has this pain she takes ibuprofen and the pain goes away. She did that today and the pain did not go away. She states usually the pain is ago way she is to come to the emergency department to be treated. Patient states she has not missed any doses of her metformin. She says her blood sugars very variable but has not checked it today. Says she has some shortness of breath due to the pain. Has not ate anything today but has been drinking fluids without issue. Denies fevers, chills, headache, vision changes, lightheadedness, dizziness. She does admit to epigastric pain denies any diarrhea or constipation. She is not having any urinary symptoms. Related Data Home Medications Medication Instructions Recorded Confirmed ibuprofen 400 mg tablet 400 mg PO Q8H 01/31/22 06/09/22 pantoprazole 40 mg tablet,delayed 40 mg PO DAILY 06/04/22 06/09/22 release Previous Rx's Medication Instructions Recorded metformin 500 mg tablet 500 mg PO BID #60 tabs 05/11/22 pantoprazole 40 mg tablet,delayed 40 mg PO DAILY #30 tabs 06/09/22 release (Protonix) sucralfate 1 gram tablet (Carafate) 1 g PO QID #40 tabs 06/09/22 pantoprazole 40 mg tablet,delayed 40 mg PO DAILY #30 tabs 11/19/22 release sucralfate 1 gram tablet (Carafate) 1 g PO BID #60 tabs 11/19/22 Allergies Allergy/AdvReac Type Severity Reaction Status Date / Time No Known Drug Allergies Allergy Verified 06/09/22 21:46 Review of Systems Status of ROS: Reports: 10 or more systems reviewed and unremarkable except as noted in History and below PFSH PFS Surgical History History of section History of laparoscopic cholecystectomy History of lumbar surgery History of tubal ligation 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 Moist mucous membranes. Neck: Symmetric, trachea midline, No thyromegaly. CVS: RRR, No murmurs or gallops. Peripheral pulses 2+ and equal in all extremities RESP: Unlabored respiratory effort. Clear to auscultation bilaterally. GI: Nontender/Nondistended, No rebound or guarding. MSK:Extremities w/o deformity, Normal Active ROM, tenderness to palpation lower midsternal region but she states reproduces the pain Skin: Warm, Dry. No rashes or lesions. Neuro: Normal Muscle tone, No focal neurological deficits. Psych: Awake, Alert, & Oriented x3. Appropriate mood and affect. Const: Vital Signs, click to edit/add: Vital Signs - 24 hr 11/19/22 20:07 11/19/22 20:23 11/19/22 20:24 Temperature 97.8 F Pulse Rate 91 89 Pulse Rate [Pulse Oximeter] 89 Respiratory Rate 18 Blood Pressure 134/89 Blood Pressure [Ri ght Upper Arm] 146/80 H Pulse Oximetry 100 100 100 Oxygen Delivery Me thod Room Air 11/19/22 20:30 11/19/22 20:31 11/19/22 20:55 Temperature Pulse Rate 93 90 Pulse Rate [Pulse Oximeter] Respiratory Rate 16 Blood Pressure 138/72 Blood Pressure [Ri ght Upper Arm] Pulse Oximetry 100 100 98 Oxygen Delivery Me thod 11/19/22 21:01 11/19/22 21:31 11/19/22 21:45 Temperature Pulse Rate 89 87 83 Pulse Rate [Pulse Oximeter] Respiratory Rate 16 Blood Pressure 148/89 H 142/70 H Blood Pressure [Ri ght Upper Arm] Pulse Oximetry 100 99 99 Oxygen Delivery Me thod 11/19/22 22:00 11/19/22 22:01 11/19/22 22:15 Temperature Pulse Rate 85 93 84 Pulse Rate [Pulse Oximeter] Respiratory Rate Blood Pressure 150/91 H Blood Pressure [Ri ght Upper Arm] Pulse Oximetry 98 100 99 Oxygen Delivery Me thod Course Vital Signs Vital signs: Initial Vital Signs Temperature 97.8 F 11/19/22 20:07 Temperature Source Temporal Artery Scan 11/19/22 20:07 Pulse Rate 89 11/19/22 20:07 Respiratory Rate 18 11/19/22 20:07 Blood Pressure 146/80 H 11/19/22 20:07 Blood Pressure Mean 102 11/19/22 20:07 Pulse Oximetry 100 11/19/22 20:07 Oxygen Delivery Method Room Air 11/19/22 20:07 Vital Signs Temperature 97.8 F 11/19/22 20:07 Pulse Rate 89 11/19/22 20:07 Respiratory Rate 18 11/19/22 20:07 Blood Pressure 146/80 H 11/19/22 20:07 Pulse Oximetry 100 11/19/22 20:07 Oxygen Delivery Method Room Air 11/19/22 20:07 Temperature 97.8 F 11/19/22 20:07 Pulse Rate 84 11/19/22 22:15 Respiratory Rate 16 11/19/22 21:31 Blood Pressure 150/91 H 11/19/22 22:01 Pulse Oximetry 99 11/19/22 22:15 Oxygen Delivery Method Room Air 11/19/22 20:07 Medical Decision Making [facility] Narrative Medical decision making narrative: Patient is a 47-year-old female presenting was brought for chest pain epigastric pain. She is having symptoms on and off for 2 years now initially pain goes away with ibuprofen but not go away this time. She states she is taking diabetes medication as prescribed. When I pressed on her midsternal region she states that did reproduce the pain exactly. Makes me believe is more musculoskeletal in nature. Very unlikely to be a PE at this time. Could be pancreatitis causing the epigastric pain. Could also be GERD. Unlikely to be ACS we will evaluate for it. Bedside blood sugar is 355. 8 units of insulin and a L of fluid was given. The CBC, CMP, lipase, troponin, EKG all ordered. Patient's lab work returns showing no concerning abnormalities. She does have a blood sugar of 433 and a L of lactated Ringer's 8 units of insulin were given and her blood sugar did come down. The pain did improve somewhat with the Toradol and morphine was given. She says her symptoms have now resolved. Her white blood cell count is low below but no clear signs of infection were seen. Troponin was within normal limits and unlikely to be cause her symptoms. Pancreatitis unlikely with lipase of 87. Her pain was reproducible with palpation so most likely a costochondritis. She will be discharged home she agrees with this plan. She did ask for refills of her gastric reflux medication and these were ordered. Lab Data Labs: Lab Results 11/19/22 Range/Units 20:34 WBC 3.36 L (4.50-11.00) K/uL RBC 4.10 (4.00-5.20) m/uL Hgb 10.0 L (12.0-16.0) gm/dL Hct 30.5 L (33.0-51.0) % MCV 74 L (80-100) fL MCH 24 L (26-34) pg MCHC 33 (32-36) gm/dL RDW Coeff of [place] 15.6 H (11.5-15.5) % Plt Count 102 L (140-440) K/uL Neut % (Auto) 59.8 (42.0-72.0) % Lymph % (Auto) 26.8 (20-44) % [place] % (Auto) 10.4 (0.0-11.0) % Eos % (Auto) 2.1 (0.0-7.0) % Baso % (Auto) 0.6 (0.0-3.0) % Neut # (Auto) 2.00 (1.7-7.0) K/uL Lymph # (Auto) 0.90 (0.90-2.90) K/uL [place] # (Auto) 0.30 (0.00-0.90) K/UL Eos # (Auto) 0.10 (0.00-0.50) K/uL Baso # (Auto) 0.00 (0.00-0.30) K/uL Abs Immat Gran (auto) 0.00 (0.00-0.30) K/uL Imm/Tot Granulo (auto) 0.3 % Sodium 134 L (135-149) mmol/L Potassium 3.6 (3.6-5.1) mmol/L Chloride 103 (96-114) mmol/L Carbon Dioxide 21 (20-32) mmol/L BUN 9 (5-24) mg/dL Creatinine 0.5 (0.5-1.5) mg/dL Estimated Creat Clear 192.00 Estimated GFR 115 ml/min Glucose 441 H* (60-115) mg/dL Calcium 8.5 (8.4-10.6) mg/dL Troponin I < 0.01 L (0.01-0.04) ng/mL Lipase 87 (23-300) U/L Imaging Data Chest x-ray: Attestation: I have reviewed the pertinent imaging results. Radiologist's impression: INDICATION: Chest pain. TECHNIQUE: Chest 2 views. COMPARISON: August 25, 2021. FINDINGS: Cardiovascular and mediastinum: Cardiomediastinal silhouette is within normal limits Lungs and pleural spaces: Lungs are clear. No sign of pleural effusion. No pneumothorax. Bones and soft tissues: Fixation rods along the thoracolumbar spine.. Otherwise, unremarkable for age IMPRESSION: No acute cardiopulmonary process identified.. No significant interval change. Dictated by Jennie Akbar MD @ 11/19/2022 8:58:49 PM ECG Data Attestation: I personally reviewed and interpreted this ECG as follows: (Normal sinus rhythm at a rate of 89 beats per minute, normal intervals, normal axis, no ST or T-wave abnormalities.) Discharge Plan Discharge Clinical Impression: Acute hyperglycemia, Atypical chest pain Patient Disposition: Home, Self-Care Condition: Improved Instructions: Noncardiac Chest Pain (ED) Additional Instructions: Follow-up with your primary care provider about your chest pain. Make sure to keep close eye on your blood sugar to keep it well controlled. Return for new worsening symptoms. Hable con hancock proveedor de atenci?n primaria sobre hancock dolor en el pecho. Aseg?rese de vigilar de cerca hancock nivel de az?car en la katherine para mantenerlo sydni controlado. Regrese para nuevos s?ntomas que empeoran. Prescriptions: New sucralfate [Carafate] 1 gram tablet 1 g PO BID Qty: 60 2RF pantoprazole 40 mg tablet,delayed release (DR/EC) 40 mg PO DAILY Qty: 30 2RF No Action ibuprofen 400 mg tablet 400 mg PO Q8H pantoprazole 40 mg tablet,delayed release (DR/EC) 40 mg PO DAILY metformin 500 mg tablet 500 mg PO BID Qty: 60 2RF sucralfate [Carafate] 1 gram tablet 1 g PO QID Qty: 40 0RF pantoprazole [Protonix] 40 mg tablet,delayed release (DR/EC) 40 mg PO DAILY Qty: 30 0RF Follow Up/Referrals: Provider,Not a Local [Primary Care Provider] - Stand Alone [facility]: [facility] Info Instructions
[2022-11-19 20:41] LABS: Basophils Percent Auto 0.6 % (0.0-3.0); Eosinophils Percent Auto 2.1 % (0.0-7.0); Hematocrit 30.5 % (33.0-51.0); Immature Granulocytes Pct Auto 0.3 %; Lymphocytes Percent Auto 26.8 % (20-44); Mean Corpuscular HGB Conc 33 gm/dL (32-36); Mean Corpuscular Hemoglobin 24 pg (26-34); Mean Corpuscular Volume 74 fL (80-100); Monocytes Percent Auto 10.4 % (0.0-11.0); Neutrophils Percent Auto 59.8 % (42.0-72.0); Platelet Count* 102 K/uL (140-440); RDW Coefficient of Variation % 15.6 % (11.5-15.5); White Blood Count* 3.36 K/uL (4.50-11.00)
[2022-11-19 20:43] LABS: Slide Review Reflex No
[2022-11-19] MEDS: KETOROLAC 15 MG/ML inj IVP (20:51)
[2022-11-19] MEDS: LACTATED RINGERS 1000 ML 1,000 ML IV (20:51)
[2022-11-19 20:53] LABS: Chloride* 103 mmol/L (96-114); Potassium* 3.6 mmol/L (3.6-5.1); Sodium* 134 mmol/L (135-149)
[2022-11-19 20:56] LABS: Blood Urea Nitrogen* 9 mg/dL (5-24); Calcium* 8.5 mg/dL (8.4-10.6); Carbon Dioxide* 21 mmol/L (20-32); Creatinine* 0.5 mg/dL (0.5-1.5); Estimated Glomerular Filt Rate 115 ml/min; Lipase* 87 U/L (23-300)
[2022-11-19 21:01] LABS: Glucose* 441 mg/dL (60-115)
[2022-11-19 21:08] LABS: Troponin I* < 0.01 ng/mL (0.01-0.04)
[2022-11-19] MEDS: MORPHINE 4 MG/ML INJ IVP (21:56)
== END 2022-11-19 22:39 | disposition home or self-care (01) ==
PROVIDERS: Emergency Provider Student in an Organized Health Care Education/Training Program
DX: R07.9 Chest pain, unspecified (principal); E11.65 Type 2 diabetes mellitus with hyperglycemia
CPT/HCPCS: 36415; 71046; 80048; 82962; 83690; 84484; 85025; 93005; 99283; 99284; 99285; J1885; J2270; J7120

== ENCOUNTER 2022-12-18 21:42 | Emergency (ER) | payer SELFPAY ==
[2022-12-18 22:12] VITALS: BP 125/75; PULSE 77; RESP 16; TEMP 36.3; O2SAT 99; BMI 34.2
--- NOTE | 2022-12-19 00:52 | ED_ITS ---
HPI - General Adult General Chief complaint: Extremity Pain/Injury, Lower Stated complaint: right knee pain Time Seen by Provider: 12/19/22 00:04 Source: patient and family Mode of arrival: ambulatory History of Present Illness HPI narrative: 47-year-old female with known history of osteoarthritis in the right knee presents to the emergency department for evaluation of right knee pain which is been more bothersome over the past week. Has ongoing issues with this, apparently evaluated by an orthopedic provider 15 months ago. It sounds as though she had and injection 8 months ago and things had been improving until the last week. No new injury or trauma. Pain is located at the medial and lateral joint lines, radiates up the lateral thigh to the lateral hip. No fevers, no trauma or injury. Has tried taking ibuprofen 1-2 tablets every few hours through the day, total of 1200 mg today, this is not helping her symptoms. Has not tried Tylenol. Not using ice or brace of any kind, has not tried using a cane. No neurological changes, no swelling in the leg. No history of DVT or PE. She does not report any prior history of ligamentous or cartilaginous injury. Pain is worse with movement and ambulation. Past medical history notable for [id number] diabetes, GERD. Home meds are metformin, pantoprazole, Carafate. Nonsmoker. ROS notable for the musculoskeletal symptoms as above only, otherwise denies any other musculoskeletal, neurological, skin or generalized changes. Related Data Home Medications Medication Instructions Recorded Confirmed ibuprofen 400 mg tablet 400 mg PO Q8H 01/31/22 12/18/22 pantoprazole 40 mg tablet,delayed 40 mg PO DAILY 06/04/22 06/09/22 release Previous Rx's Medication Instructions Recorded metformin 500 mg tablet 500 mg PO BID #60 tabs 05/11/22 pantoprazole 40 mg tablet,delayed 40 mg PO DAILY #30 tabs 06/09/22 release (Protonix) sucralfate 1 gram tablet (Carafate) 1 g PO QID #40 tabs 06/09/22 pantoprazole 40 mg tablet,delayed 40 mg PO DAILY #30 tabs 11/19/22 release sucralfate 1 gram tablet (Carafate) 1 g PO BID #60 tabs 11/19/22 oxycodone 5 mg tablet 2.5 - 5 mg (0.5 - 1 x 5 mg) PO Q8H 12/19/22 PRN pain #7 tabs prednisone 20 mg tablet 20 mg PO DAILY #5 tabs 12/19/22 Allergies Allergy/AdvReac Type Severity Reaction Status Date / Time No Known Drug Allergies Allergy Verified 12/18/22 22:18 PFSH PFS Surgical History History of tubal ligation ?Z98.51 - Tubal ligation status (ICD-10) History of lumbar surgery ?Z98.890 - Other specified postprocedural states (ICD-10) History of laparoscopic cholecystectomy ?Z90.49 - Acquired absence of other specified parts of digestive tract (ICD- 10) History of section ?Z98.891 - History of uterine scar from previous surgery (ICD-10) 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: , 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, 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, 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, 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 Smoking Status: Never smoker Do you use any of these nicotine containing products: None Second hand tobacco smoke exposure: No How often do you have a drink containing alcohol: never How often do you have six or more drinks on one occasion: Never AUDIT-C Alcohol total score: 0 Non-prescribed substance use: denies use service: No Exam Const: Vital Signs, click to edit/add: Vital Signs - 24 hr 12/18/22 22:12 Temperature 97.3 F L Pulse Rate [Left P ulse Oximeter] 77 Respiratory Rate 16 Blood Pressure [Ri ght Upper Arm] 125/75 Pulse Oximetry 99 Oxygen Delivery Me thod Room Air Documenting provider has reviewed patient's vital signs: yes Common normals: no apparent distress General appearance: cooperative and well kempt HENMT: Common normals: normocephalic and head/scalp atraumatic Head and scalp: normocephalic and atraumatic Eye: General eye: normal appearance of both eyes Resp: Common normals: normal respiratory effort Effort & inspection: able to speak in complete sentences Cardio: Common normals: regular rate, regular rhythm, S1 normal heart sound, S2 normal heart sound and no murmurs Rate: regular rate Rhythm: regular rhythm Heart sounds: S1 normal and S2 normal Extremity: Other: Both knees without effusion. No obvious injury or trauma or deformity. Right hip with normal range of motion. Tenderness over palpation of greater trochanter but mild. Right knee showing no instability, but she very much resists movement. Tender to palpation and manipulation. No effusion, no redness. She is tender to palpation everywhere and exam is extremely unrewarding at localizing her symptoms. There is no tenderness in the popliteal fossa. Calves are soft with no palpable cords, negative Homans sign. Right ankle exam is also normal. Neuro: Speech: speech normal Motor exam: no movement abnormalities noted Psych: Appearance: well kempt Activity/motor behavior: appropriate eye contact Insight: insight good Judgement: judgment good Skin: Common normals: no rashes or lesions noted General skin exam: no rashes or lesions noted Course Course ED Course: Chronic right knee pain with no new trauma or injury. Do not recommend repeat imaging. Counseled patient that she is likely more symptomatic since her injection has worn off. Discussed risks and benefits of treatment and management. She will need follow-up with her orthopedic provider. She was encouraged to make this appointment right away. Even though worsen her blood sugar in GERD, I do recommend a course of prednisone. Will give 30 mg p.o. x1 today with 1000 mg of Tylenol and 5 mg of oxycodone. Counseled on use of Tylenol, ibuprofen. Short course of 20 mg once daily prednisone for the next 5 days and a very limited supply of oxycodone to use if the pain is severe. Counseled on use of her cane until things improve and stressed the importance of appropriate specialty follow-up for long-term management. She verbalizes understanding and agreement. Vital Signs Vital signs: Initial Vital Signs Temperature 97.3 F L 12/18/22 22:12 Temperature Source Temporal Artery Scan 12/18/22 22:12 Pulse Rate 77 12/18/22 22:12 Respiratory Rate 16 12/18/22 22:12 Blood Pressure 125/75 12/18/22 22:12 Blood Pressure Mean 91 12/18/22 22:12 Blood Pressure Position Sitting 12/18/22 22:12 Pulse Oximetry 99 12/18/22 22:12 Oxygen Delivery Method Room Air 12/18/22 22:12 Vital Signs Temperature 97.3 F L 12/18/22 22:12 Pulse Rate 77 12/18/22 22:12 Respiratory Rate 16 12/18/22 22:12 Blood Pressure 125/75 12/18/22 22:12 Pulse Oximetry 99 12/18/22 22:12 Oxygen Delivery Method Room Air 12/18/22 22:12 Temperature 97.3 F L 12/18/22 22:12 Pulse Rate 77 12/18/22 22:12 Respiratory Rate 16 12/18/22 22:12 Blood Pressure 125/75 12/18/22 22:12 Pulse Oximetry 99 12/18/22 22:12 Oxygen Delivery Method Room Air 12/18/22 22:12 Discharge Plan Discharge Clinical Impression: Osteoarthritis of right knee Patient Disposition: Home w/ Parent or Adult Condition: Stable Instructions: Osteoarthritis (DC) Additional Instructions: As we discussed, you have ongoing arthritis in your right knee. It sounds as though the injection you had 8 months ago was helping significantly and now has worn off. ED to make a follow-up appointment with her orthopedic provider to discuss further options. They may possibly recommend another injection versus surgery. For pain, take Tylenol 1000 mg every 6 hours. You may also added ibuprofen 2-3 tablets every 6 6 hours as needed as well. I will place him on a short course of prednisone 20 mg just once daily for the next 5 days. I am using a lower dose because of your diabetes and history of gastric reflux though it will likely worsen both of those for a few days. It should start to help the pain within a couple of days. I will also give you a small supply of oxycodone, a strong narcotic pain medication mainly to just use at bedtime if you cannot sleep due to the pain. It is also okay to use melatonin and/or Benadryl to help you sleep as well. I do not detect any emergent threats to her health at this time but this will need follow-up which you will need to arrange with your orthopedic provider. Use a cane to get around until you are feeling better. Jerrell comentamos, usted tiene artritis en curso en hancock rodilla derecha. Parece que la inyecci?n que recibi? hace 8 meses le ayud? significativamente y ahora lewis desaparecido. ED para programar sarina shaheen de seguimiento con hancock proveedor de ortopedia para analizar otras opciones. Es posible que recomienden otra inyecci?n en lugar de cirug?a. Para el dolor, tome Tylenol 1000 mg cada 6 horas. Tambi?n puede agregar 2-3 tabletas de ibuprofeno cada 6 o 6 horas seg?n sea necesario. Lo someter? a un tratamiento corto de 20 mg de prednisona solo sarina vez al d?a parisa los pr?ximos 5 d?as. Estoy usando sarina dosis m?s baja debido a hancock diabetes y antecedentes de reflujo g?strico, aunque probablemente empeorar? ambos parisa unos d?as. Deber?a empezar a aliviar el dolor en un par de d?as. Tambi?n le duane? sarina zoë?a cantidad de oxicodona, un analg?sico narc?emilia ирина que debe usar principalmente antes de acostarse si no puede dormir debido al dolor. Tambi?n est? sydni usar melatonina y/o Benadryl para ayudarle a dormir. No detecto ninguna amenaza emergente para hancock al en bruna momento, evan esto necesitar? un seguimiento que ?l deber? coordinar con [place] proveedor de ortopedia. Utilice un maribell?n para desplazarse hasta que se sienta mejor. Activity Level: Activity as Tolerated Discharge Diet: Regular Prescriptions: New prednisone 20 mg tablet 20 mg PO DAILY Qty: 5 0RF oxycodone 5 mg tablet 2.5 - 5 mg PO Q8H PRN (Reason: pain) Qty: 7 0RF No Action ibuprofen 400 mg tablet 400 mg PO Q8H pantoprazole 40 mg tablet,delayed release (DR/EC) 40 mg PO DAILY metformin 500 mg tablet 500 mg PO BID Qty: 60 2RF sucralfate [Carafate] 1 gram tablet 1 g PO QID Qty: 40 0RF pantoprazole [Protonix] 40 mg tablet,delayed release (DR/EC) 40 mg PO DAILY Qty: 30 0RF sucralfate [Carafate] 1 gram tablet 1 g PO BID Qty: 60 2RF pantoprazole 40 mg tablet,delayed release (DR/EC) 40 mg PO DAILY Qty: 30 2RF Follow Up/Referrals: Provider,Not a Local [Primary Care Provider] - Stand Alone Forms: [employer] Info Instructions
[2022-12-19] MEDS: OXYCODONE 5 MG TABLET PO (00:54)
[2022-12-19] MEDS: predniSONE 10 MG TABLET 30 MG PO (00:56)
[2022-12-19] MEDS: ACETAMINOPHEN 500 MG TABLET 1000 MG PO (00:56)
== END 2022-12-19 01:07 | disposition home or self-care (01) ==
LOC: ED 12-19 00:55
PROVIDERS: Emergency Provider Family Medicine
DX: M17.11 Unilateral primary osteoarthritis, right knee (principal)
CPT/HCPCS: 99283; A9270; J7512

== ENCOUNTER 2022-12-31 14:28 | Emergency (ER) | payer SELFPAY ==
[2022-12-31 14:44] VITALS: BP 125/85; PULSE 92; RESP 20; TEMP 36.2; O2SAT 100; BMI 45.8
--- NOTE | 2022-12-31 14:46 | CRLHL7_ITS ---
For Patients: As a result of the Cures Act, medical imaging exams and procedure reports are released immediately into your electronic medical record. You may view this report before your referring provider. If you have questions, please contact your health care provider. Indication: Pain Technique: Two views Comparison: 11/25/2021 Findings: Mild tricompartmental osteoarthrosis, not significantly changed compared to the prior exam. No significant joint effusion. A trace suprapatellar joint effusion could be present. Unchanged paired rounded oval rim calcifications in the anterosuperior periarticular soft tissues, not considered clinically significant. Impression: No significant interval change. Tricompartmental osteoarthrosis. Dictated by Raul Phillips MD @ 12/31/2022 3:47:14 PM (Electronically Signed)
--- NOTE | 2022-12-31 14:51 | CRLHL7_ITS ---
For Patients: As a result of the Century Cures Act, medical imaging exams and procedure reports are released immediately into your electronic medical record. You may view this report before your referring provider. If you have questions, please contact your health care provider. INDICATION: Pelvic pain. TECHNIQUE: Pelvis radiograph, 1 view. COMPARISON: None. FINDINGS: There is widening of the superior sacroiliac joints bilaterally, with suspicion of osseous erosions involving the inferior aspect of the sacroiliac joints. No fractures or dislocation. No diastasis of the pubic symphysis. The femoral heads maintain their normal sphericity. Acetabulum are unremarkable bilaterally. Hardware projecting over the lower lumbar spine. IMPRESSION: Findings suggestive of bilateral symmetric sacroiliitis, nonspecific and of which there is a broad differential. Clinical correlation is advised, CT/MR may be obtained for further evaluation. Dictated by Shay Mcbride MD @ 12/31/2022 3:46:19 PM (Electronically Signed)
[2022-12-31] MEDS: MORPHINE 10 MG/ML inj IM (14:52)
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
--- NOTE | 2022-12-31 15:25 | CRLHL7_ITS ---
For Patients: As a result of the Cures Act, medical imaging exams and procedure reports are released immediately into your electronic medical record. You may view this report before your referring provider. If you have questions, please contact your health care provider. INDICATION: Low-back pain.. TECHNIQUE: Lumbar spine 3 view. COMPARISON: None. FINDINGS: Bones: Fixation rods are noted in the posterior spine soft tissues. Compression deformity of the L2 vertebral body.. Exaggerated kyphosis at this level. No acute fractures or dislocations identified. Joints: Multilevel degenerative changes throughout the lumbar spine.. Soft tissues: Unremarkable. Dictated by Jennie Akbar MD @ 12/31/2022 4:34:58 PM (Electronically Signed)
--- NOTE | 2022-12-31 15:28 | ED.NURSE ---
pain not improved from morphine, MD notified.
[2022-12-31] MEDS: KETOROLAC 10 MG TABLET PO (15:32)
[2022-12-31] MEDS: predniSONE 10 MG TABLET 50 MG PO (15:40)
--- NOTE | 2022-12-31 16:11 | CRLHL7_ITS ---
For Patients: As a result of the Century Cures Act, medical imaging exams and procedure reports are released immediately into your electronic medical record. You may view this report before your referring provider. If you have questions, please contact your health care provider. INDICATION: Right-sided leg pain. Low back pain. TECHNIQUE : Lumbar spine MRI without contrast. The following sequences were obtained: Sagittal T1, T2 weighted and STIR sequences. Axial T1 and T2 weighted sequences. COMPARISON: Lumbar spine radiographs from 01/08/2023. 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 No acute fractures or marrow replacing lesions. Susceptibility artifact along the dorsal lateral thoracolumbar spine from surgical instrumentation. Susceptibility artifact from the hardware limits evaluation of the spinal canal. Allowing for this, no high-grade spinal canal stenosis is present. No visible cord signal abnormality. No paraspinal soft tissue pathology. Discs/Endplates: Absence of interspaces at L1-2/L2-3. L3-4 hypoplastic interspace. L4-5 disc dehydration and type 2 reactive marrow change. L5-S1 disc dehydration. Findings at individual levels as follows: Imaged lower thoracic levels: No spinal canal or neural foraminal stenosis. L1-2: No spinal canal or neural foraminal stenosis. L2-3: No spinal canal or neural foraminal stenosis. L3-4: No spinal canal or neural foraminal stenosis. L4-5: Mild disc bulge. Bilateral grade facet arthrosis. Mild bilateral foraminal stenosis. No spinal canal stenosis. L5-S1: At L5-S1, a large left central/subarticular disc protrusion frankly impinges the traversing left S1 nerve root, contacts the traversing right S1 nerve root and contributes to mild to moderate spinal canal stenosis. Mild bilateral neural foraminal stenosis. Imaged SI joints: Bilateral arthrosis. Imaged sacrum: Within normal limits. IMPRESSION: 1. At L5-S1, a large left central/subarticular disc protrusion frankly impinges the traversing left S1 nerve root, contacts the traversing right S1 nerve root and contributes to mild to moderate spinal canal stenosis. 2. Dorsal lateral thoracolumbar instrumentation results in significant susceptibility artifact, partially obscuring the spinal canal. Allowing for this, no high-grade spinal canal stenosis. 3. 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 Dictated by Ross Smith MD @ 01/01/2023 10:42:05 AM (Electronically Signed)
[2022-12-31 17:34] VITALS: BP 128/82; PULSE 81; RESP 20; O2SAT 98
--- NOTE | 2022-12-31 18:11 | ED.NURSE ---
pt reporting her pain is improving
--- NOTE | 2022-12-31 19:19 | ED.NURSE ---
pt report given off to oncoming RN
[2022-12-31 19:20] VITALS: BP 121/75; PULSE 79; RESP 18; O2SAT 98
[2022-12-31 20:37] VITALS: BP 136/75; PULSE 93; RESP 20; TEMP 36.3; O2SAT 99
--- NOTE | 2022-12-31 20:39 | ED.NURSE ---
pt refused to utilize [employer] ipad at time of discharge. Daughter at bedside who speaks swedish. Refused offer for interuptor services and utilized adult daughter.
== END 2022-12-31 20:37 | disposition home or self-care (01) ==
LOC: ED 16:19
PROVIDERS: Emergency Provider Family Medicine
DX: M25.561 Pain in right knee (principal); G89.29 Other chronic pain; M46.1 Sacroiliitis, not elsewhere classified; G54.4 Lumbosacral root disorders, not elsewhere classified
CPT/HCPCS: 72100; 72148; 72170; 73560; 96372; 99284; 99285; A9270; J2270; J7512

== ENCOUNTER 2023-03-31 09:04 | Outpatient (CLI) | payer OTHER, SELFPAY | END 2023-03-31 09:05 | disposition home or self-care (01) | PROVIDERS: Visit Provider Family Medicine | DX: M54.16 Radiculopathy, lumbar region (principal) | CPT/HCPCS: 64483; T1013; J1100; Q9966 ==

== ENCOUNTER 2023-04-10 00:03 | Emergency (ER) | payer OTHER, SELFPAY ==
[2023-04-10 00:15] VITALS: BP 145/72; PULSE 91; RESP 18; TEMP 36.6; O2SAT 98; BMI 34.8
[2023-04-10] MEDS: 0.9 % SODIUM CHLORIDE 1000 ml 1,000 ML IV ×2 (01:05→01:57)
[2023-04-10 01:30] LABS: Basophils Percent Auto 0.6 % (0.0-3.0); Eosinophils Percent Auto 1.3 % (0.0-7.0); Hematocrit 31.9 % (33.0-51.0); Hemoglobin* 10.3 gm/dL (12.0-16.0); Immature Granulocytes Pct Auto 0.3 %; Lymphocytes Percent Auto 19.8 % (20-44); Mean Corpuscular HGB Conc 32 gm/dL (32-36); Mean Corpuscular Hemoglobin 24 pg (26-34); Mean Corpuscular Volume 73 fL (80-100); Monocytes Percent Auto 8.1 % (0.0-11.0); Neutrophils Percent Auto 69.9 % (42.0-72.0); Platelet Count* 91 K/uL (140-440); RDW Coefficient of Variation % 15.7 % (11.5-15.5); Red Blood Count 4.39 m/uL (4.00-5.20); White Blood Count* 3.08 K/uL (4.50-11.00)
[2023-04-10 01:35] LABS: Slide Review Reflex Yes
[2023-04-10 01:37] LABS: Chloride* 102 mmol/L (96-114); Potassium* 3.9 mmol/L (3.6-5.1); Sodium* 132 mmol/L (135-149)
[2023-04-10 01:37] LABS: Hemoglobin A1C* 11.8 % (0-5.6)
[2023-04-10 01:39] LABS: Creatinine* 0.4 mg/dL (0.5-1.5); Estimated Glomerular Filt Rate 121 ml/min
[2023-04-10 01:40] LABS: Anion Gap 7 mEq/L (7-15); Blood Urea Nitrogen* 7 mg/dL (5-24); Calcium* 8.6 mg/dL (8.4-10.6); Carbon Dioxide* 23 mmol/L (20-32)
[2023-04-10 01:48] LABS: Glucose* 612 mg/dL (60-115)
--- NOTE | 2023-04-10 02:24 | ED.GENADULT ---
HPI - General Adult General Date Seen: 04/10/23 Chief complaint: Diabetic Related Problem Stated complaint: diabetic 600 Time Seen by Provider: 04/10/23 00:06 Source: patient Mode of arrival: ambulatory Limitations: language barrier History of Present Illness HPI narrative: Patient is a 47-year-old type 2 diabetic who just takes metformin 500 mg daily. She received an epidural steroid injection a couple of weeks ago and since that time her blood sugars have been excessively high. For the past week or more she has been above 500 and cannot get it to come down. She has polyuria, polydipsia, generalized achiness. She does not see anyone regularly for her diabetes but she has seen Dr. Stock once and has an appointment with him within the next week or two. She denies fevers or chills. She was on some oral prednisone prior to the epidural injection. She has history of acid reflux. Her is also a poorly controlled type 2 diabetic and he takes insulin so he will be able to assist with her injections until she learns to do it for herself. Related Data Home Medications Medication Instructions Recorded Confirmed ibuprofen 400 mg tablet 400 mg PO Q8H 01/31/22 12/31/22 pantoprazole 40 mg tablet,delayed 40 mg PO DAILY 06/04/22 12/31/22 release Previous Rx's Medication Instructions Recorded metformin 500 mg tablet 500 mg PO BID #60 tabs 05/11/22 pantoprazole 40 mg tablet,delayed 40 mg PO DAILY #30 tabs 06/09/22 release (Protonix) sucralfate 1 gram tablet (Carafate) 1 g PO QID #40 tabs 06/09/22 pantoprazole 40 mg tablet,delayed 40 mg PO DAILY #30 tabs 11/19/22 release sucralfate 1 gram tablet (Carafate) 1 g PO BID #60 tabs 11/19/22 oxycodone 5 mg tablet 2.5 - 5 mg (0.5 - 1 x 5 mg) PO Q8H 12/19/22 PRN pain #7 tabs prednisone 20 mg tablet 20 mg PO DAILY #5 tabs 12/19/22 celecoxib 200 mg capsule (Celebrex) 200 mg PO DAILY #10 caps 12/31/22 hydrocodone 5 mg-acetaminophen 325 1 tab PO Q6H PRN pain #14 tabs 12/31/22 mg tablet prednisone 20 mg tablet 20 mg PO BID #6 tabs 12/31/22 Allergies Allergy/AdvReac Type Severity Reaction Status Date / Time No Known Drug Allergies Allergy Verified 01/01/23 13:08 Review of Systems Narrative: Review of systems is positive for acid reflux and chronic severe low back pain. She has never had blood sugars this high before. Review of systems in all other areas is noted to be negative. [facility] Medical History (Updated 04/10/23 @ 01:38 by Erwin Porter MD) Chronic low back pain ?M54.50 - Low back pain, unspecified (ICD-10) ?G89.29 - Other chronic pain (ICD-10) Uncontrolled type 2 diabetes mellitus with hyperglycemia ?E11.65 - Type 2 diabetes mellitus with hyperglycemia (ICD-10) Spinal stenosis ?M48.00 - Spinal stenosis, site unspecified (ICD-10) Gastroesophageal reflux disease ?K21.9 - Gastro-esophageal reflux disease without esophagitis (ICD-10) Exogenous obesity ?E66.09 - Other obesity due to excess calories (ICD-10) Surgical History History of lumbar fusion ?Z98.1 - Arthrodesis status (ICD-10) History of tubal ligation ?Z98.51 - Tubal ligation status (ICD-10) History of lumbar surgery ?Z98.890 - Other specified postprocedural states (ICD-10) History of laparoscopic cholecystectomy ?Z90.49 - Acquired absence of other specified parts of digestive tract (ICD-10) History of section ?Z98.891 - History of uterine scar from previous surgery (ICD-10) 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: , 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 She appears dehydrated and a bit pale. HEENT: Conjunctiva clear. Tympanic membranes are pearly white bilaterally. Posterior pharynx is clear without erythema or exudate. Mouth is dry. Neck is supple without adenopathy, thyromegaly, carotid bruit. Lungs: Clear to auscultation in all toth. No wheezes, rales, rhonchi. Heart: Regular rate and rhythm without murmur. Abdomen: Soft with mild epigastric tenderness. No guarding, rigidity, rebound. Bowel sounds are normal. No palpable masses. Extremities: No cyanosis or edema. Good distal pulses. Skin: No abnormalities noted of the exposed skin. Neurologic: Awake, alert, fully oriented. Neurologic exam is nonfocal. Const: Vital Signs, click to edit/add: Vital Signs - 24 hr 04/10/23 00:15 04/10/23 02:38 04/10/23 02:39 Temperature 97.9 F 98.2 F 98.2 F Pulse Rate [Pulse Oximeter] 91 89 89 Respiratory Rate 18 18 18 Blood Pressure [Ri ght Upper Arm] 145/72 H 135/74 135/74 Pulse Oximetry 98 98 Oxygen Delivery Me thod Room Air Room Air Course Course ED Course: Patient was seen and examined. We had a university intern on the iPad. She has had severe hyperglycemia for about two weeks. We placed an IV and gave her 2 L of normal saline. 10 units of regular insulin is given through her IV. Her sugar came down from over 600 down to 375. A 2nd dose of 8 units of regular insulin is given. She is feeling much better. Reevaluation(s) Reevaluation #1: Labs returned with a CBC showing hemoglobin of 10.3, MCV 73, platelet count 24174. Ferritin is pending. Basic metabolic panel shows a BUN of seven, creatinine 0.4, glucose 612 along with pseudo hyponatremia. Hemoglobin A1c is 11.8% corresponding to an average blood sugar of 290. I gave her a [employer] prescription to use to fill her medications. Vital Signs Vital signs: Initial Vital Signs Temperature 97.9 F 04/10/23 00:15 Temperature Source Temporal Artery Scan 04/10/23 00:15 Pulse Rate 91 04/10/23 00:15 Respiratory Rate 18 04/10/23 00:15 Blood Pressure 145/72 H 04/10/23 00:15 Blood Pressure Mean 96 04/10/23 00:15 Blood Pressure Position Sitting 04/10/23 00:15 Pulse Oximetry 98 04/10/23 00:15 Oxygen Delivery Method Room Air 04/10/23 00:15 Vital Signs Temperature 97.9 F 04/10/23 00:15 Pulse Rate 91 04/10/23 00:15 Respiratory Rate 18 04/10/23 00:15 Blood Pressure 145/72 H 04/10/23 00:15 Pulse Oximetry 98 04/10/23 00:15 Oxygen Delivery Method Room Air 04/10/23 00:15 Temperature 98.2 F 04/10/23 02:39 Pulse Rate 89 04/10/23 02:39 Respiratory Rate 18 04/10/23 02:39 Blood Pressure 135/74 04/10/23 02:39 Pulse Oximetry 98 04/10/23 02:38 Oxygen Delivery Method Room Air 04/10/23 02:38 Medications Administered Medications: Discontinued Medications Generic Name Dose Route Start Last Admin Trade Name Freq PRN Reason Stop Dose Admin Sodium Chloride 1,000 mls @ 1,000 mls/hr 04/10/23 00:57 04/10/23 01:51 0.9 % Sodium Chloride 1000 Ml IV 04/10/23 01:56 Infused .Q1H SAV Infusion Sodium Chloride 1,000 mls @ 1,000 mls/hr 04/10/23 01:56 04/10/23 02:29 0.9 % Sodium Chloride 1000 Ml IV 04/10/23 02:55 Infused .Q1H SAV Infusion Insulin Human Regular 10 unit 04/10/23 00:55 04/10/23 01:05 Insulin Regular 100 Unit/Ml Inj IVP 04/10/23 00:56 10 unit ONCE ONE Administration Insulin Human Regular 8 unit 04/10/23 02:26 04/10/23 02:29 Insulin Regular 100 Unit/Ml Inj IVP 04/10/23 02:27 8 unit ONCE ONE Administration Medical Decision Making Lab Data Labs: Lab Results 04/10/23 04/10/23 Range/Units 00:58 00:59 WBC 3.08 L (4.50-11.00) K/uL RBC 4.39 (4.00-5.20) m/uL Hgb 10.3 L (12.0-16.0) gm/dL Hct 31.9 L (33.0-51.0) % MCV 73 L (80-100) fL MCH 24 L (26-34) pg MCHC 32 (32-36) gm/dL RDW Coeff of [place] 15.7 H (11.5-15.5) % Plt Count 91 L (140-440) K/uL Neut % (Auto) 69.9 (42.0-72.0) % Lymph % (Auto) 19.8 L (20-44) % [place] % (Auto) 8.1 (0.0-11.0) % Eos % (Auto) 1.3 (0.0-7.0) % Baso % (Auto) 0.6 (0.0-3.0) % Neut # (Auto) 2.20 (1.7-7.0) K/uL Lymph # (Auto) 0.60 L (0.90-2.90) K/uL [place] # (Auto) 0.20 (0.00-0.90) K/UL Eos # (Auto) 0.00 (0.00-0.50) K/uL Baso # (Auto) 0.00 (0.00-0.30) K/uL Abs Immat Gran (auto) 0.00 (0.00-0.30) K/uL Imm/Tot Granulo (auto) 0.3 % Diff Slide Review (Acceptable) Sodium 132 L (135-149) mmol/L Potassium 3.9 (3.6-5.1) mmol/L Chloride 102 (96-114) mmol/L Carbon Dioxide 23 (20-32) mmol/L Anion Gap 7 (7-15) mEq/L BUN 7 (5-24) mg/dL Creatinine 0.4 L (0.5-1.5) mg/dL Estimated Creat Clear 122.20 Estimated GFR 121 ml/min Glucose 612 H* (60-115) mg/dL Hemoglobin A1c 11.8 H (0-5.6) % Calcium 8.6 (8.4-10.6) mg/dL Ferritin 7.2 (6.24-137.0) ng/mL Discharge Plan Discharge Clinical Impression: Uncontrolled type 2 diabetes mellitus with hyperglycemia Patient Disposition: Home, Self-Care Condition: Improved Additional Instructions: Your sugars should improve as the steroid injection gets out of your system. Increase your metformin dose to 500 mg two pills twice a day. Start Novolin 70/30 insulin 20 units twice daily. That dose can be decreased if you start having any low blood sugars. It is important that you see your clinic doctor within the next month. It is helpful if you can write your blood sugars down and bring them to that appointment. Susana niveles de az?car deber?an mejorar a medida que la inyecci?n de esteroides sale de hancock sistema. Aumente [place]ancock dosis de metformina a 500 mg dos pastillas dos veces al d?a. Iniciar Novolin 70/30 insulina 20 unidades dos veces al d?a. Ashu dosis se puede disminuir si comienzas a tener niveles bajos de az?car en la katherine. Es importante que consulte a [place]ancock m?dico cl?ana paula dentro del pr?ximo mes. Es ?til si puede corregir susana niveles de az?car en la katherine y llevarlos a ashu shaheen. Prescriptions: No Action ibuprofen 400 mg tablet 400 mg PO Q8H pantoprazole 40 mg tablet,delayed release (DR/EC) 40 mg PO DAILY metformin 500 mg tablet 500 mg PO BID Qty: 60 2RF sucralfate [Carafate] 1 gram tablet 1 g PO QID Qty: 40 0RF pantoprazole [Protonix] 40 mg tablet,delayed release (DR/EC) 40 mg PO DAILY Qty: 30 0RF sucralfate [Carafate] 1 gram tablet 1 g PO BID Qty: 60 2RF pantoprazole 40 mg tablet,delayed release (DR/EC) 40 mg PO DAILY Qty: 30 2RF prednisone 20 mg tablet 20 mg PO DAILY Qty: 5 0RF oxycodone 5 mg tablet 2.5 - 5 mg PO Q8H PRN (Reason: pain) Qty: 7 0RF hydrocodone-acetaminophen 5-325 mg tablet 1 tab PO Q6H PRN (Reason: pain) Qty: 14 0RF prednisone 20 mg tablet 20 mg PO BID Qty: 6 0RF celecoxib [Celebrex] 200 mg capsule 200 mg PO DAILY Qty: 10 2RF Follow Up/Referrals: Provider,Not a Local [Primary Care Provider] - Stand Alone Forms: [facility] Info Inst[facility]
[2023-04-10 02:38] VITALS: BP 135/74; PULSE 89; RESP 18; TEMP 36.8; O2SAT 98
[2023-04-10 02:39] VITALS: BP 135/74; PULSE 89; RESP 18; TEMP 36.8
[2023-04-10 03:55] LABS: Ferritin* 7.2 ng/mL (6.24-137.0)
== END 2023-04-10 03:00 | disposition home or self-care (01) ==
LOC: ED 01:36
PROVIDERS: Emergency Provider Family Medicine
DX: E11.65 Type 2 diabetes mellitus with hyperglycemia (principal)
CPT/HCPCS: 36415; 80048; 82728; 82962; 83036; 85025; 99282; 99284; J7030

== ENCOUNTER 2023-05-29 10:44 | Outpatient (CLI) | payer OTHER, SELFPAY ==
--- OUTSIDE RECORDS SUMMARY | 2023-05-29 11:08 | XMS_ITS | Clinical Summary ---
Author Name Unknown Organization [facility] Address [place], [place] [address] Care Team Providers Care Financial Reporting Advisor Name Role Phone Pcp, No Primary Care Provider Unavailabl e Allergies No known active allergies Medications Medication Sig Dispensed Refills Start Date End Date Status VITAMIN TABIndications:Supe rvision of other normal take 1 tablet by oral route once daily 100 3 09/23/2006 Active gabapentin (NEURONTIN) 300 mg capsuleIndications: Lumbar radiculopathy Take 1 Capsule (300 mg) by mouth at bedtime. 30 Capsule 3 02/05/2023 Active celecoxib (CELEBREX) 200 mg capsuleIndications: Herniated nucleus pulposus, L5-S1 Take 1 Capsule (200 mg) by mouth two times daily with meals. 60 Capsule 2 02/05/2023 Active HYDROcodone-acetami nophen ([place]) (5-325 mg/tablet)Indicatio ns:Herniated nucleus pulposus, L5-S1 Take 1 Tablet by mouth 3 times daily if needed for Pain. Max acetaminophen dose: 4000mg in 24 hrs. 24 Tablet 0 02/25/2023 Active Active Problems Estimated Date of Delivery Comme nts Yes 04/18/2007 No known active problems Encounters Date Type Department Care Team Description 04/22/2023 Telephone [facility] [address] [place] [address] Angel Cheema MD Health Maintenance Update 03/31/2023 9:40 AM BIOMEDICAL ENGINEERING TECHNICIAN Office Visit [facility] at [facility] [address] [place] [id number] Angel Cheema MD Procedure (Right S1 TFESI) 03/09/2023 Telephone [facility] [address] [place] [address] Angel Cheema MD Results from Last 3 Months Family History Medical History Relation Name Comments Genetic Other No CAD Relation Name Status Comments Father Mother Other Social History Tobacco Use Types Packs/Day Years Used Date Smoking Tobacco: Never Smokeless Tobacco: Never Tobacco Cessation:Counseling Given: Yes Alcohol Use Standard Drinks/Week Comments No 0 (1 standard drink = 0.6 oz pur e alcohol) Social Connections Answer Date Recorded Frequency of Communication with Friends and Fami ly Not on file 02/05/2023 Estimated Date of Delivery Comme nts Yes 04/18/2007 Sex and Gender Information Value Date Recorded Sex Assigned at Not on file Gender Identity Not on file Sexual Orientation Not on file Obstetrics History Para Term AB IAB SAB Ectopic Multiple Livin g Live Births 4 2 2 Date Outcome GA Total Labor Labor/2nd/3rd Weight Sex Delivery Anes PTL Yue A1 A5 Name Cl in Para Para 06/10 40w 0d 4.8 kg (10 lb 9.3 oz) F Vag Angionesimo chandra Delivery Location:[facility] Comments:gave at home 07/10 32w 0d 2.5 kg (5 lb 8.2 oz) F Angionesimo bazan Delivery Location:[place] Comments:low fluid Last Filed Vital Signs Vital Sign Reading Time Taken Comments Blood Pressure 115/75 02/25/2023 3:11 PM BIOMEDICAL ENGINEERING TECHNICIAN Pulse 82 02/25/2023 3:11 PM BIOMEDICAL ENGINEERING TECHNICIAN Temperature 36.9 ??C (98.5 ??F) 02/25/2023 3:11 PM CS T Respiratory Rate - - Oxygen Saturation 100% 02/25/2023 3:11 PM BIOMEDICAL ENGINEERING TECHNICIAN Inhaled Oxygen Concentration - - Weight 81.9 kg (180 lb 9.6 oz) 02/25/2023 3:11 P M BIOMEDICAL ENGINEERING TECHNICIAN Height 142.9 cm (4' 8.25) 10/02/2006 9:30 AM CD T Body Mass Index - - Plan of Treatment Upcoming Encounters Date Type Department Care Team (Late st Contact Info) Description 06/29/2023 9:00 AM CDT Office Visit [facility] [address] [place] [address] Angel Cheema MD [address] [place] [address] Health Maintenance Due Date Last Done Comments Tdap 1984 Depression screening for age 12+ 1985 BMI (ht and wt on same day) for age 18+ 07/28/1991 Hepatitis C screening for ag e 18-79 07/28/1991 Tetanus booster 1993 Pap test for age 21-65 06/10/2013 , 10/02/2006 Colonoscopy through age 75 2018 Lipids for age 45-75 2018 Mammogram for age 45-75 2018 COVID-19 vaccine series ( season) 2022 05/17/2021, 10/23/2020, 10/02/2020 Influenza for age 9-49 12/12/2022 HIV for age 15-65 Completed 09/23/2006 Pneumococcal series for age 6-64 Aged Out No longer eligible b ased on patient's age to complete this topic Procedures Procedure Name Priority Date/Time Associated Diagnosis Comments AMB EPIDURAL STEROID INJECTION Routine 03/31/2023 8:07 AM BIOMEDICAL ENGINEERING TECHNICIAN Herniated nucleus pulposus, L5-S1 Lumbar radiculopathy S/P lumbar fusion from Last 3 Months Care Teams Financial Reporting Advisor Relationship Specialty Start Date End Date Pcp, No . PCP - General 10/22/22
== END 2023-05-29 10:45 | disposition home or self-care (01) ==
LOC: NFLDREF 11:06
PROVIDERS: PCP Family Medicine; Visit Provider Surgery
DX: N61.1 Abscess of the breast and nipple (principal)
CPT/HCPCS: 87070; 87186; 87205

== ENCOUNTER 2023-07-03 13:52 | Emergency (ER) | payer OTHER, SELFPAY ==
[2023-07-03 14:03] VITALS: BP 112/71; PULSE 75; TEMP 36.3; O2SAT 94; BMI 31.8
--- NOTE | 2023-07-03 14:43 | ED.GENADULT ---
HPI - General Adult General Date Seen: 07/03/23 Chief complaint: Unspecified Complaint, Adult Stated complaint: Bleeding R breast-no trauma Time Seen by Provider: 07/03/23 14:07 Source: patient, RN notes reviewed, old records reviewed and delivery engineer Mode of arrival: ambulatory Limitations: no limitations and language barrier History of Present Illness HPI narrative: Patient is a 47-year-old Colombian-speaking woman, history is obtained with the assistance of an delivery engineer. Last month she had an infection in her right breast which was treated with antibiotics. She did feel that it improved and resolved completely. Two days ago, she developed some pain in the right breast laterally, she said that she had a little bleeding not from the nipple but just left of the nipple where there is a small swelling. She has not had fevers, no rashes. She says she tried ibuprofen but it did not help with the pain. She does have a mammogram scheduled for next Thursday. Notably, she had a mammogram done in January of 2022, also had right lateral breast pain at that time, ultrasound and mammogram were unrevealing. Related Data Home Medications Medication Instructions Recorded Confirmed pantoprazole 40 mg tablet,delayed 40 mg PO DAILY 06/04/22 05/29/23 release gabapentin 300 mg capsule 300 mg PO QPM 05/22/23 05/29/23 Previous Rx's Medication Instructions Recorded celecoxib 200 mg capsule (Celebrex) 200 mg PO DAILY #10 caps 12/31/22 insulin human U-100 NPH-regulr 45 sliding scale dose subcut BID 05/22/23 70-30 mix 100 unit/mL subcutaneous #40 mL susp (Novolin 70/30 U-100 Insulin) metformin 500 mg tablet,extended 1,000 mg (2 x 500 mg) PO BID #120 05/22/23 release 24 hr tabs Allergies Allergy/AdvReac Type Severity Reaction Status Date / Time No Known Drug Allergies Allergy Verified 06/10/23 11:51 Review of Systems Status of ROS: Reports: 6 or more systems reviewed and unremarkable except as noted in History and below [facility] Medical History Type 2 diabetes mellitus, with long-term current use of insulin ?E11.9 - Type 2 diabetes mellitus without complications (ICD-10) ?Z79.4 - residential (current) use of insulin (ICD-10) Chronic low back pain ?M54.50 - Low back pain, unspecified (ICD-10) ?G89.29 - Other chronic pain (ICD-10) Uncontrolled type 2 diabetes mellitus with hyperglycemia ?E11.65 - Type 2 diabetes mellitus with hyperglycemia (ICD-10) Spinal stenosis ?M48.00 - Spinal stenosis, site unspecified (ICD-10) Gastroesophageal reflux disease ?K21.9 - Gastro-esophageal reflux disease without esophagitis (ICD-10) Exogenous obesity ?E66.09 - Other obesity due to excess calories (ICD-10) Surgical History (Updated 05/29/23 @ 12:03 by Milind Charles MD) History of lumbar fusion ?Z98.1 - Arthrodesis status (ICD-10) History of tubal ligation ?Z98.51 - Tubal ligation status (ICD-10) History of lumbar surgery ?Z98.890 - Other specified postprocedural states (ICD-10) History of laparoscopic cholecystectomy ?Z90.49 - Acquired absence of other specified parts of digestive tract (ICD-10) History of section ?Z98.891 - History of uterine scar from previous surgery (ICD-10) 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 In general, an alert, well-appearing patient. Head: Normocephalic, atraumatic. Eyes: Pupils are equal reactive. Extraocular movements are full. Conjunctivae are normal. ENT: Mucous membranes are moist. Neck: Supple without lymphadenopathy. Breast: Left breast is normal., nontender. On the right, she has some tenderness to the left of the nipple as well as along the right lateral breast. No obvious masses, no discharge from the nipple, no bleeding. No erythema or warmth. No adnexal masses. No rash. Neurologic: Patient is alert and oriented to person and place. Speech is fluent. Face is symmetric. Moves all extremities equally. Affect: Normal. Skin: Warm and dry. Well perfused. Const: Vital Signs, click to edit/add: Vital Signs - 24 hr 07/03/23 14:03 Temperature 97.3 F L Pulse Rate [Pulse Oximeter] 75 Blood Pressure [Ri ght Upper Arm] 112/71 Pulse Oximetry 94 Oxygen Delivery Me thod Room Air Documenting provider has reviewed patient's vital signs: yes Course Course ED Course: At this time, etiology of symptoms is unclear. I do not see any evidence of infection today. I do not see evidence of shingles though advised to keep an eye out for rash. For now I would recommend continued pain control with ibuprofen 400 mg plus Tylenol 1000 mg 3 times daily as needed, I gave oxycodone, 4 tablets from [facility] if needed for more severe pain, particularly at night. Follow up for mammogram next week and then with primary care. Consider repeat ultrasound if symptoms are persistent. Return for new symptoms such as redness, fever, swelling. Vital Signs Vital signs: Initial Vital Signs Temperature 97.3 F L 07/03/23 14:03 Temperature Source Temporal Artery Scan 07/03/23 14:03 Pulse Rate 75 07/03/23 14:03 Pulse Rhythm Regular 07/03/23 14:03 Blood Pressure 112/71 07/03/23 14:03 Blood Pressure Mean 84 07/03/23 14:03 Blood Pressure Position Sitting 07/03/23 14:03 Pulse Oximetry 94 07/03/23 14:03 Oxygen Delivery Method Room Air 07/03/23 14:03 Vital Signs Temperature 97.3 F L 07/03/23 14:03 Pulse Rate 75 07/03/23 14:03 Blood Pressure 112/71 07/03/23 14:03 Pulse Oximetry 94 07/03/23 14:03 Oxygen Delivery Method Room Air 07/03/23 14:03 Temperature 97.3 F L 07/03/23 14:03 Pulse Rate 75 07/03/23 14:03 Blood Pressure 112/71 07/03/23 14:03 Pulse Oximetry 94 07/03/23 14:03 Oxygen Delivery Method Room Air 07/03/23 14:03 Discharge Plan Discharge Clinical Impression: Breast pain Patient Disposition: Home, Self-Care Condition: Stable Additional Instructions: Ibuprofen 400 mg plus Tylenol 1000 mg up to 3 times a day with food as needed for pain. Mammogram as planned next week, follow-up with Dr. Xiong for recheck after mammogram. If you have severe pain, developed significant redness, fevers, chills or other worsening return to the ER. Oxycodone if needed for more significant pain. Prescriptions: No Action pantoprazole 40 mg tablet,delayed release (DR/EC) 40 mg PO DAILY gabapentin 300 mg capsule 300 mg PO QPM celecoxib [Celebrex] 200 mg capsule 200 mg PO DAILY Qty: 10 2RF Novolin 70/30 U-100 Insulin 100 unit/mL (70-30) suspension 45 sliding scale dose subcut BID Qty: 40 2RF metformin 500 mg tablet extended release 24 hr 1,000 mg PO BID Qty: 120 5RF Follow Up/Referrals: Erwin Porter MD [Primary Care Provider] - Stand Alone [facility] Inst[facility]
== END 2023-07-03 14:46 | disposition home or self-care (01) ==
LOC: ED 14:36
PROVIDERS: Emergency Provider Emergency Medicine; PCP Family Medicine
DX: N64.4 Mastodynia (principal)
CPT/HCPCS: 99283; 99284

== ENCOUNTER 2023-07-06 19:55 | Emergency (ER) | payer OTHER, SELFPAY ==
[2023-07-06 20:28] VITALS: BP 143/113; PULSE 84; RESP 22; TEMP 36.6; O2SAT 98; BMI 32.6
--- NOTE | 2023-07-06 20:35 | ED.BACK ---
HPI - Back Pain/Injury General Time Seen by Provider: 20:35 Date Seen: 07/06/23 Chief Complaint: Back Injury/Pain Stated Complaint: Lower back pain Time Seen by Provider: 07/06/23 20:35 Source: patient Mode of arrival: ambulatory Limitations: no limitations History of Present Illness HPI Narrative: Pam is a 47-year-old female with complicated medical history including spinal stenosis with multilevel spinal surgery in [place] many years ago, low back pain with injections by [facility] in March, type 2 diabetes, recent right breast infection treated with antibiotics who comes to the emergency room with complaints of low back and leg pain. Pam was initially seen by Dr. Randolph on 07/03/2023 with a breast infection, bleeding from the nipple. She is scheduled for mammography tomorrow. However, while she notes that all of that has improved and she denies a fever she notes that her low back has started hurting. She states that she successfully had steroid injections in March that made her back pain go way. Yesterday she had some slight back pain but today it has been significant with pain in the right flank right low back right buttock radiating down the lateral aspect of her leg to her mid calf. It does not radiate any further than that. She has so much pain that she has been unable to walk. She denies perineal numbness or loss of bowel or bladder control. She denies taking orals steroids in the past. She has not had fever or chills. She has not noticed any unusual rash. Any movement greatly exacerbates her pain. Patient had been given oxycodone by Dr. Randolph for breast pain. Rubi is here and he is assisting us with interpretation as is our proof machine operator on the iPad. Related Data Home Medications Medication Instructions Recorded Confirmed pantoprazole 40 mg tablet,delayed 40 mg PO DAILY 06/04/22 05/29/23 release gabapentin 300 mg capsule 300 mg PO QPM 05/22/23 05/29/23 Previous Rx's Medication Instructions Recorded celecoxib 200 mg capsule (Celebrex) 200 mg PO DAILY #10 caps 12/31/22 insulin human U-100 NPH-regulr 45 sliding scale dose subcut BID 05/22/23 70-30 mix 100 unit/mL subcutaneous #40 mL susp (Novolin 70/30 U-100 Insulin) metformin 500 mg tablet,extended 1,000 mg (2 x 500 mg) PO BID #120 05/22/23 release 24 hr tabs Allergies Allergy/AdvReac Type Severity Reaction Status Date / Time No Known Drug Allergies Allergy Verified 07/06/23 22:29 Review of Systems Status of ROS: Reports: 10 or more systems reviewed and unremarkable except as noted in History and below Const: Denies: fever or chills ENMT: Denies: neck pain or throat swelling Cardio: Denies: chest pain or shortness of breath with exertion Resp: Denies: shortness of breath or cough GI: Denies: abdominal pain, nausea, vomiting or diarrhea : Denies: painful urination Musculo: Reports: back pain and extremity pain (Right lower extremity); Denies: neck pain or extremity swelling Integ/Breast: Denies: rash Allergy/Immuno: Denies: throat swelling PFSH PFSH Medical History Type 2 diabetes mellitus, with long-term current use of insulin ?E11.9 - Type 2 diabetes mellitus without complications (ICD-10) ?Z79.4 - technician terminal and repeater (current) use of insulin (ICD-10) Chronic low back pain ?M54.50 - Low back pain, unspecified (ICD-10) ?G89.29 - Other chronic pain (ICD-10) Uncontrolled type 2 diabetes mellitus with hyperglycemia ?E11.65 - Type 2 diabetes mellitus with hyperglycemia (ICD-10) Spinal stenosis ?M48.00 - Spinal stenosis, site unspecified (ICD-10) Gastroesophageal reflux disease ?K21.9 - Gastro-esophageal reflux disease without esophagitis (ICD-10) Exogenous obesity ?E66.09 - Other obesity due to excess calories (ICD-10) Surgical History History of lumbar fusion ?Z98.1 - Arthrodesis status (ICD-10) History of tubal ligation ?Z98.51 - Tubal ligation status (ICD-10) History of lumbar surgery ?Z98.890 - Other specified postprocedural states (ICD-10) History of laparoscopic cholecystectomy ?Z90.49 - Acquired absence of other specified parts of digestive tract (ICD-10) History of section ?Z98.891 - History of uterine scar from previous surgery (ICD-10) 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: , 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, 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 External ears eyes nose clear. Heart with regular rate and rhythm and lungs are clear bilaterally. Abdomen is soft and nontender. Back exam shows significant scarring from the mid aspect of the thoracic spine down through sacrum. Tenderness is noted throughout with hypersensitivity palpation response in the right upper flank lower flank low back right buttock. Sensation is intact down the right leg. She is able to move her ankle and toe but she states that it hurts and I must encourage her to move and she is able to do that. Examination of the right breast shows no erythema. Nipple is slightly enlarged compared to left but it is not warm to the touch, erythematous or with any drainage. No swelling or drainage noted. No pain with of light palpation. Const: Vital Signs, click to edit/add: Vital Signs - 24 hr 07/06/23 20:28 Temperature 97.9 F Pulse Rate [Pulse Oximeter] 84 Respiratory Rate 22 Blood Pressure [Ri ght Upper Arm] 143/113 H Pulse Oximetry 98 Oxygen Delivery Me thod Room Air Documenting provider has reviewed patient's vital signs: yes Course Course ED Course: Differential diagnosis includes but is not limited to lumbar radiculitis, ureteral colic, pyelonephritis, early shingles, intra-abdominal process. Will place IV as she definitely needs some sort of pain control. Will use morphine 4 mg Zofran 4 mg and give normal saline bolus as well. I am suggesting that we actually go ahead with abdominal CT with recon films of the lower thoracic and lumbar spines. Would also obtain urinalysis, CBC, lactate, comprehensive panel and CRP. voices understanding and door is in agreement with our plan. Reevaluation(s) Reevaluation #1: Patient noted to have only minimal improvement with morphine. Therefore did give her Dilaudid 0.5 mg IV. She was able to be much more comfortable. Urinalysis without evidence of UTI or hematuria. Vital Signs Vital signs: Initial Vital Signs Temperature 97.9 F 07/06/23 20:28 Temperature Source Temporal Artery Scan 07/06/23 20:28 Pulse Rate 84 07/06/23 20:28 Respiratory Rate 22 07/06/23 20:28 Blood Pressure 143/113 H 07/06/23 20:28 Blood Pressure Mean 123 H 07/06/23 20:28 Blood Pressure Position Sitting 07/06/23 20:28 Pulse Oximetry 98 07/06/23 20:28 Oxygen Delivery Method Room Air 07/06/23 20:28 Vital Signs Temperature 97.9 F 07/06/23 20:28 Pulse Rate 84 07/06/23 20:28 Respiratory Rate 22 07/06/23 20:28 Blood Pressure 143/113 H 07/06/23 20:28 Pulse Oximetry 98 07/06/23 20:28 Oxygen Delivery Method Room Air 07/06/23 20:28 Temperature 97.9 F 07/06/23 20:28 Pulse Rate 84 07/06/23 20:28 Respiratory Rate 22 07/06/23 20:28 Blood Pressure 143/113 H 07/06/23 20:28 Pulse Oximetry 98 07/06/23 20:28 Oxygen Delivery Method Room Air 07/06/23 20:28 Medications Administered Medications: Generic Name Dose Route Start Last Admin Trade Name Freq PRN Reason Stop Dose Admin Dexamethasone 4 mg 07/06/23 23:24 07/06/23 23:28 Dexamethasone 4 Mg/Ml Vial IV 07/06/23 23:25 4 mg ONCE ONE Administration Hydromorphone HCl 0.5 mg 07/06/23 22:48 07/06/23 22:55 Hydromorphone 0.5 Mg/0.5 Ml Inj IVP 07/06/23 22:49 0.5 mg ONCE ONE Administration Discontinued Medications Generic Name Dose Route Start Last Admin Trade Name Freq PRN Reason Stop Dose Admin Sodium Chloride 1,000 mls @ 1,000 mls/hr 07/06/23 21:11 07/06/23 22:45 0.9 % Sodium Chloride 1000 Ml IV 07/06/23 22:10 Infused .Q1H SAV Infusion Morphine Sulfate 4 mg 07/06/23 21:10 07/06/23 21:30 Morphine 4 Mg/Ml Inj IVP 07/06/23 21:11 4 mg ONCE ONE Administration Ondansetron HCl 4 mg 07/06/23 21:10 07/06/23 21:29 Ondansetron 2 Mg/Ml Inj IVP 07/06/23 21:11 4 mg ONCE ONE Administration MDM - Back Pain/Injury MDM Narrative Medical decision making narrative: 1. Low back pain with radiculitis-patient has a history of steroid injections to previous surgery. CT reassuring with is true no evidence of injuries or bone lesions. Patient is hesitating to lift her leg but I do see full movement. Repeat examination of lower extremity shows DTRs to be symmetrical 1+. Lower extremity ankle and great toe dorsiflexion plantar flexion fully intact. We do have patient walk with walker in she is able to do that. She states she feels much better than when she came in to the nursing staff. I talked with patient about the use of steroids in her particular case. While there are positives to steroids in her case and this could help relieves discomfort via its in full anti-inflammatory effect, we must be cognizant of the fact that she is on an antibiotic for a right breast infection. This could compromise her immune system. We must also be aware that her blood sugar would likely increased. It appears that she has had longstanding problems with elevated blood sugar. Finally I did state that steroid sometimes makes people feel anxious. She is aware of the side effects and has elected to use steroids. I did give her dexamethasone 4 mg IV here and will continue with prednisone 20 mg p.o. b.i.d. for an additional 5 days. I would like her to follow-up with Cynthia, Dr. Cheema, for consultation. Need to return to the emergency room for worsening symptoms. 2. Breast infection-improved. No evidence of redness drainage at this time. Mammogram scheduled for tomorrow. 2. Disposition -home at this time. Return for worsening symptoms. Medical Records Attestation: I reviewed the patient's medical records. Lab Data Attestation: I reviewed the patient's lab results. Labs: Lab Results 07/06/23 07/06/23 07/06/23 Range/Units 21:31 21:42 22:08 Sodium 137 (135-149) mmol/L Potassium 3.4 L (3.6-5.1) mmol/L Chloride 108 (96-114) mmol/L Carbon Dioxide 22 (20-32) mmol/L Anion Gap 7 (7-15) mEq/L BUN 7 (5-24) mg/dL Creatinine 0.4 L (0.5-1.5) mg/dL Estimated Creat Clear 122.20 Estimated GFR 121 ml/min Glucose 251 H (60-115) mg/dL Calcium 8.7 (8.4-10.6) mg/dL Total Bilirubin 0.6 (0.1-1.5) mg/dL AST 46 H (12-35) U/L ALT 46 H (4-35) U/L Alkaline Phosphatase 159 H (40-150) U/L C-Reactive Protein 0.8 (0.5-1.0) mg/dL Total Protein 8.3 (6.0-8.3) g/dL Albumin 3.9 (3.3-5.0) g/dL Urine Color Yellow (Yellow) Urine Appearance Clear (Clear) Urine pH 6.5 (5.0-8.5) Ur Specific [place] 1.015 (1.000-1.030) Urine Protein Negative (Negative) Urine Glucose (UA) 2+ A (Negative) Urine Ketones Negative (Negative) Urine Blood Negative (Negative) Urine Nitrite Negative (Negative) Urine Bilirubin Negative (Negative) Urine Urobilinogen 1.0 (0.2-1.0) Ur Leukocyte Esterase Negative (Negative) Urine RBC 0-2 (0-2) Urine WBC 0-2 (0-5) Ur Squamous Epith Cells Few (None-Few) Urine Bacteria Few A (None) POC Creatinine 0.4 L (0.6-1.3) mg/dl Imaging Data CT scan - abdomen: Attestation: I have reviewed the pertinent imaging results. Radiologist's impression: Liver and biliary tree: Hepatic cysts measuring up to 2.6 centimeter in the right liver (2/37). Additional subcentimeter hypoattenuating lesions are too small to characterize and are favored to represent cysts. Postsurgical change from liver transplantation. Dilated common bile duct measuring 1.8 centimeter. Gallbladder: Postsurgical changes from cholecystectomy. Spleen: Normal noncontrast appearance. Pancreas: Normal noncontrast appearance. Adrenal glands: Normal noncontrast appearance. Kidneys and ureters: Atrophic bilateral kidneys. No hydronephrosis. No obstructing renal calculi. 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 Gastrointestinal tract: [id number] sigmoid diverticulosis with moderate wall thickening and fat stranding in the proximal sigmoid colon (2/115). No evidence of bowel obstruction. Peritoneal cavity: 1.8 x 1.4 centimeter gas containing collection is seen adjacent to the sigmoid colon (2/114). Additional subcentimeter gas collection is seen tracking cranially (2/106). Moderate fat stranding surrounding the sigmoid colon. Bladder: Decompressed. Pelvic organs: Normal. Vasculature: Moderate calcification. Lymph nodes: Normal. Abdominal wall: Normal. Musculoskeletal: Mild degenerative changes of the bilateral hips. Moderate multilevel degenerative changes of the visualized spine. Osteopenia. Moderate L3 superior endplate compression deformity. Impression: 1. Moderate to severe sigmoid diverticulosis with moderate wall thickening and fat stranding in the proximal sigmoid colon; there are small gas containing collections adjacent to the sigmoid colon. Findings are compatible with complicated diverticulitis with small areas of contained perforation. 2. Dilated common bile duct. Consider correlation with bilirubin levels to exclude obstruction. 3. Age-indeterminate moderate L3 superior endplate compression deformity. Lumbar spine CT: Attestation: I have reviewed the pertinent imaging results. Radiologist's impression: 1. 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 This causes mild focal kyphosis. 2. Norm stabilization of the lumbar spine is noted from T10-L4. The appearance is similar to prior exam of 06/09/2022. 3. No acute osseous injuries or aggressive bone lesions are identified. 4. Degenerative disc disease with large anterior disc protrusions and osteophytes are noted at L4-5 and L5-S1. Discharge Plan Discharge Clinical Impression: Low back pain, Radiculitis Patient Disposition: Home, Self-Care Condition: Improved Additional Instructions: Follow-up for your mammogram tomorrow as directed. Continue to monitor breast for any increasing redness or discharge. Seek medical attention if you are noting increased swelling or fever. Ice to your low back 20-30 minutes 3 times daily. Do not do this on bare skin but use a towel to protect her skin. Continue steroids in the form of prednisone tomorrow. Oxycodone is a narcotic pain medication that you may use for discomfort. Oxycodone may cause constipation and so you should use a stool softener such as Colace. It can also cause you to feel dizzy. You should not drive nor be up on a ladder as you are at risk for fall. For your back you will need to follow-up with [facility] and consult with Dr. Cheema once again for possibility of an injection. Return to the emergency room for worsening symptoms. .................................................................................................................................................................. Nola un seguimiento de hancock mamograf?a ma?buster seg?n las indicaciones. Contin?e controlando los senos para detectar cualquier aumento de enrojecimiento o secreci?n. Busque atenci?n m?dica si nota aumento de la hinchaz?n o fiebre. Aplique hielo en la greg lumbar parisa 20 a 30 minutos, 3 veces al d?a. No hagas esto sobre la piel desnuda, usa sarina toalla para proteger hancock piel. Contin?e ma?buster con esteroides en forma de prednisona. La oxicodona es un analg?sico narc?emilia que puede utilizar para aliviar el malestar. La oxicodona puede provocar estre?imiento, por lo que se debe utilizar un ablandador de heces johnnie Colace. Tambi?n puede provocar que se sienta mareado. No debe conducir ni subirse a sarina dorothy ya que corre el riesgo de caerse. Para hancock espalda, deber? realizar un seguimiento con [facility] y consultar con el Dr. Cheema sarina vez m?s sobre la posibilidad de sarina inyecci?n. Regrese a la germán de emergencias si los s?ntomas empeoran. Prescriptions: No Action pantoprazole 40 mg tablet,delayed release (DR/EC) 40 mg PO DAILY gabapentin 300 mg capsule 300 mg PO QPM celecoxib [Celebrex] 200 mg capsule 200 mg PO DAILY Qty: 10 2RF Novolin 70/30 U-100 Insulin 100 unit/mL (70-30) suspension 45 sliding scale dose subcut BID Qty: 40 2RF metformin 500 mg tablet extended release 24 hr 1,000 mg PO BID Qty: 120 5RF Follow Up/Referrals: Erwin Porter MD [Primary Care Provider] - Stand Alone Forms: [facility] Info Instructions
--- NOTE | 2023-07-06 21:10 | CT_ITS ---
Patient: NOY HAGEN Facility:?[facility] RIS Patient ID:?[id number] Site Patient ID:?[id number]. Site :?1975 Study:?CT-Abdomen/Pelvis W/ 82CC ISOVUE 370-07/06/2023 10:38:02 PM Ordering Physician:MACIEL Final Report: INDICATION: Low back pain and right flank pain TECHNIQUE: CT Abdomen and pelvis with i.v. contrast. Coronal and sagittal reformats were obtained. CONTRAST: 82 mL Isovue 370 COMPARISON: 06/09/2022 FINDINGS: Lower chest: Unremarkable. Liver: The liver has a nodular capsular contour, consistent with micronodular cirrhosis. No focal liver lesions are identified. Spleen: The spleen is at the upper limits of normal in size measuring 12.8 cm. Pancreas: Unremarkable. Gallbladder: Previous cholecystectomy noted with [no significant intra- or extrahepatic] biliary ductal dilatation seen. Kidney: Unremarkable. No kidney or ureteral stones or obstruction seen. Adrenal: Unremarkable. Bowel: Unremarkable. The appendix is not identified. Vascular: Unremarkable. Lymph: Unremarkable. Peritoneum: Mild infiltration of the anterior abdominal fat is noted in the pelvis without interval change which may be due to numerous small vascular collaterals. No pneumoperitoneum is seen. No significant ascites is noted. Pelvis: Unremarkable. Soft tissue: Unremarkable. Bone: CT lumbar spinal findings are described on separate report. IMPRESSION: 1. No CT correlate for the patient`s symptoms seen. Please note that all CT scans at this facility use dose modulation, iterative reconstruction, and/or weight-based dosing when appropriate to reduce radiation dose to as low as reasonably achievable. Dictated by: Jeff Licona MD @ 07/06/2023 23:00:01 Signed by:?Jeff Licona MD @07/06/2023 11:00:01 PM (Electronic Signature)
--- NOTE | 2023-07-06 21:10 | CT_ITS ---
Patient: NOY HAGEN Facility:?[facility] RIS Patient ID:?[id number] Site Patient ID:?[id number]. Site :?1975 Study:?CT-Spine Lumbar W/O-07/06/2023 10:39:38 PM Ordering Physician:MACIEL Final Report: Indication: Low back pain Technique: Noncontrast axial CT of the lumbar spine with coronal and sagittal reformats. Comparison: MRI lumbar spine 12/31/2022 Findings: For numbering purposes, the last rib-bearing vertebral body is designated T12. There are 5 lumbar segments, identified by 5 discrete paired transverse processes. However, the L1 and L2 vertebral bodies appear completely fused and hypoplastic with anterior wedge configuration, contributing to focal kyphosis just below the thoracolumbar junction. This hypoplastic fused L1-L2 segment is also fused to the underlying L3 vertebral body, with a diminutive disc space remnant anteriorly. The L3 body is grossly maintained in height. The lumbar lordosis is preserved. There are posterior spinal fusion changes, with posterior element cerclage wires and interconnecting rods spanning T8 through L5. There is solid bony ankylosis across T8-L4. No bony ankylosis across the L4-L5. No acute osseous abnormality is identified. No significant spondylolisthesis. Spondylosis superimposed on postoperative ankylosis contribute to mild left and mild-moderate right neuroforaminal narrowing at T11-12, mild right and mild- moderate left neural foraminal narrowing at T12-L1. There is also mild bilateral neural foraminal narrowing at L5-S1. At L5-S1, left central disc protrusion contributes to left lateral recess effacement, likely impinging the descending left S1 nerve root. Otherwise, the visualized spinal canal appears grossly patent given artifact limitations. Impression: 1. 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 2. The hypoplastic fused L1-L2 segment is also fused to the L3 vertebral body, with diminutive L2-L3 disc space remnant anteriorly. 3. Posterior balwinder and cerclage fusion spanning T8-L5. Solid bony ankylosis across T8-L4. 4. At L5-S1, left central disc protrusion effaces the left lateral recess, likely impinging the descending left S1 nerve root, similar to prior MRI. 5. Additional scattered spondylosis superimposed on postoperative ankylosis with low-grade neural foraminal narrowing as detailed. Please note that all CT scans at this facility use dose modulation, iterative reconstruction, and/or weight-based dosing when appropriate to reduce radiation dose to as low as reasonably achievable. Dictated by Lexi Muñoz MD @ 07/07/2023 7:27:35 AM Signed by:?Lexi Muñoz MD @07/07/2023 7:27:35 AM (Electronic Signature)
[2023-07-06] MEDS: ONDANSETRON 2 MG/ML inj 4 MG IVP (21:29)
[2023-07-06] MEDS: 0.9 % SODIUM CHLORIDE 1000 ml 1,000 ML IV (21:30)
[2023-07-06] MEDS: MORPHINE 4 MG/ML INJ IVP (21:30)
[2023-07-06 21:43] LABS: Creatinine, Point-of-Care* 0.4 mg/dl (0.6-1.3)
[2023-07-06 22:01] LABS: Chloride* 108 mmol/L (96-114)
[2023-07-06 22:02] LABS: Albumin* 3.9 g/dL (3.3-5.0); Potassium* 3.4 mmol/L (3.6-5.1); Sodium* 137 mmol/L (135-149)
[2023-07-06 22:04] LABS: Creatinine* 0.4 mg/dL (0.5-1.5); Estimated Glomerular Filt Rate 121 ml/min
[2023-07-06 22:05] LABS: Alanine Aminotransferase* 46 U/L (4-35); Alkaline Phosphatase* 159 U/L (40-150); Anion Gap 7 mEq/L (7-15); Aspartate Amino Transferase* 46 U/L (12-35); Bilirubin Total* 0.6 mg/dL (0.1-1.5); Blood Urea Nitrogen* 7 mg/dL (5-24); Carbon Dioxide* 22 mmol/L (20-32); Total Protein* 8.3 g/dL (6.0-8.3)
[2023-07-06 22:06] LABS: Calcium* 8.7 mg/dL (8.4-10.6); Glucose* 251 mg/dL (60-115)
[2023-07-06 22:08] LABS: C Reactive Protein* 0.8 mg/dL (0.5-1.0)
[2023-07-06 22:25] LABS: Appearance Urine Clear (Clear); Bilirubin Urine Negative (Negative); Blood Urine Negative (Negative); Color Urine Yellow (Yellow); Glucose Urine 2+ (Negative); Ketones Urine Negative (Negative); Leukocyte Esterase Urine Negative (Negative); Nitrite Urine Negative (Negative); Protein Urine Negative (Negative); Specific Gravity Urine 1.015 (1.000-1.030); pH Urine 6.5 (5.0-8.5)
[2023-07-06 22:34] LABS: Bacteria Urine Few; RBC Urine 0-2 (0-2); Squamous Epithelial Cell Urine Few (None-Few); WBC Urine 0-2 (0-5)
[2023-07-06] MEDS: HYDROmorphone 0.5 mg/0.5 ml inj IVP (22:55)
[2023-07-06] MEDS: dexAMETHasone 4 MG/ML VIAL IV (23:28)
[2023-07-06 23:48] LABS: Basophils Percent Auto 0.3 % (0.0-3.0); Eosinophils Percent Auto 0.9 % (0.0-7.0); Hematocrit 32.6 % (33.0-51.0); Hemoglobin* 10.5 gm/dL (12.0-16.0); Lymphocytes Percent Auto 13.4 % (20-44); Mean Corpuscular HGB Conc 32 gm/dL (32-36); Mean Corpuscular Hemoglobin 24 pg (26-34); Mean Corpuscular Volume 74 fL (80-100); Neutrophils Percent Auto 77.4 % (42.0-72.0); Platelet Count* 95 K/uL (140-440); RDW Coefficient of Variation % 15.9 % (11.5-15.5); Red Blood Count 4.41 m/uL (4.00-5.20)
[2023-07-06 23:50] LABS: Slide Review Reflex No
== END 2023-07-06 23:57 | disposition home or self-care (01) ==
PROVIDERS: Emergency Provider Family Medicine; PCP Family Medicine
DX: M54.16 Radiculopathy, lumbar region (principal)
CPT/HCPCS: 36415; 72131; 74177; 80053; 81001; 82565; 85025; 86140; 87086; 87186; 96374; 99283; 99284; J1100; J1170; J2270; J2405; J7030; Q9967

== ENCOUNTER 2023-07-24 10:49 | Outpatient (CLI) | payer OTHER, SELFPAY ==
--- NOTE | 2023-07-24 10:45 | MM_ITS ---
Patient: NOY HAGEN Facility:?[facility] RIS Patient ID:?[id number] Site Patient ID:?[id number] Site :?1975 Study:?XRay-Breast Bilateral 3D w/CAD-07/24/2023 11:38:17 AM Ordering Physician:giles Final Report: DIGITAL DIAGNOSTIC BILATERAL MAMMOGRAM USING TOMOSYNTHESIS AND COMPUTER-AIDED DETECTION RIGHT BREAST ULTRASOUND CLINICAL HISTORY: RIGHT breast pain. COMPARISON: 02/04/2022. TECHNIQUE: Digital BILATERAL mammogram in four projections. Tomosynthesis and CAD utilized. Real-time ultrasound imaging of RIGHT breast with imaging documentation. BREAST COMPOSITION: There are areas of scattered fibroglandular density. FINDINGS: 3D CC/MLO BILATERAL mammogram images submitted. No suspicious masses or architectural distortion. No adenopathy or suspicious calcifications. Targeted RIGHT breast ultrasound performed in the area of concern at 9 o`clock 7 cm from the nipple. No fibrocystic change or mass. Normal dense tissue is present. No abnormal vascularity. IMPRESSION: No suspicious findings. No abscess. RECOMMENDATIONS: Annual BILATERAL screening mammography. Results and recommendations discussed with the patient through an advanced manufacturing engineer. BI-RADS Category 2: Benign A lay language report of this examination will be provided to the patient. Dictated by Erwin Rausch MD @ 07/24/2023 11:48:36 AM jj/Dictated by: Erwin Rausch MD @ 07/24/2023 11:48:00 AM Signed by:?Erwin Rausch MD @07/24/2023 3:26:03 PM (Electronic Signature)
--- OUTSIDE RECORDS SUMMARY | 2023-07-24 10:52 | XMS_ITS | Clinical Summary ---
Author Name Unknown Organization [employer] [facility] Address [place], [place] [address] Care Team Providers Care Counter Hop Name Role Phone Pcp, No Primary Care [...] 60 Capsule 2 02/05/2023 Active HYDROcodone-acetami nophen ([place]) (5-325 mg/tablet)Indicatio ns:Herniated nucleus pulposus, L5-S1 Take 1 Tablet by mouth 3 times daily if needed for Pain. Max acetaminophen dose: 4000mg in 24 hrs. 24 Tablet 02/25/2023 Active Active Problems Estimated Date of Delivery Comme nts Yes 04/18/2007 No known active problems Encounters Date Type Department Care Team Description 07/08/2023 Lab Requisition [facility] [phone] Yazmin Adam NP 07/08/2023 Lab Requisition [facility] [phone] Yazmin Adam NP from Last 3 Months Family History Medical [...] (10 lb 9.3 oz) F Vag Angionesimo farooq corazon Delivery Location:[facility] Comments:gave at home 07/10 32w 0d 2.5 kg (5 lb 8.2 oz) F Angi ng hortensia Delivery Location:[place] Comments:low fluid Last Filed Vital Signs Vital Sign Reading Time Taken Comments Blood Pressure 115/75 02/25/2023 3:11 PM FURNITURE BUILDER Pulse 82 02/25/2023 3:11 PM FURNITURE BUILDER Temperature 36.9 ??C (98.5 ??F) 02/25/2023 3:11 PM CS T Respiratory Rate - - Oxygen Saturation 100% 02/25/2023 3:11 PM FURNITURE BUILDER Inhaled Oxygen Concentration - - Weight 81.9 kg (180 lb 9.6 oz) 02/25/2023 3:11 P M FURNITURE BUILDER Height 142.9 cm (4' 8.25) 10/02/2006 9:30 AM CD T Body Mass Index - - Plan of Treatment Upcoming Encounters Date Type Department Care Team (Late st Contact Info) Description 08/20/2023 1:00 PM CDT Office Visit [facility] [address] [place] [address] Angel Cheema MD [address] [place] [address] Health Maintenance Due Date Last Done Comments Tdap 1984 Depression screening for age 12+ 1985 BMI (ht and wt on same day) for age 18+ 07/28/1991 Hepatitis C screening for age 18-79 07/28/1991 Tetanus booster 1993 Colonoscopy through age 75 2018 Lipids for age 45-75 2018 Mammogram for age 45-75 2018 COVID-19 vaccine series (2022-24 season) 2022 05/17/2021, 10/23/2020, 10/02/2020 Influenza for age 9-49 12/13/2023 Pap test for age 21-65 07/06/2026 , 07/07/2023, 06/10/2010, Additional history exists HIV for age 15-65 Completed 09/23/2006 Pneumococcal series for age 6-64 Aged Out No longer eligible based on patient's age to complete this topic Procedures Procedure Name Priority Date/Time Associated Diagnosis Comments LAB TRACKING EVENT Routine 07/07/2023 12 :45 PM CDT HEAD WOOD GRINDER THIN PREP PAP SCREEN IMAGED Routine 07/07/2023 12:45 PM CDT HPV THIN PREP Routine 07/07/2023 12:45 PM CDT LAB TRACKING EVENT Routine 07/07/2023 12 :40 PM CDT PATH TISSUE EXAM Routine 07/07/2023 12:4 0 PM CDT ANTI HIV 1/2 Routine 09/23/2006 4:15 PM CDT Supervision Of Other Normal from Last 3 Months or Most Recently Relevant to Health Maintenance Results * LAB TRACKING EVENT (07/07/2023 12:45 PM CDT) Only the most recent of2 resultswithin the time period is included. Other (Other) Client Collect / Unknown 07/07/2023 12:45 PM CDT 07/08/2023 3:43 PM CDT Yazmin Adam NP LAB BILL ONLY [facility]AL LABORATORY [address] [place] [address], [place] * HEAD WOOD GRINDER THIN PREP PAP SCREEN IMAGED (07/07/2023 12:45 PM CDT) Case Report Gynecologic Cytology Report ? Case: [id number] ? Authorizing Provider: ??Yazmin Adam, VENDING MACHINE OPERATOR ?? Collected: ? 07/07/2023 1245 ? Ordering Location: ? [facility] ?Received: ?07/08/2023 1707 ? First Screen: ?Brian Corado ? Rescreen: ?Sheridan Lara ? Specimen: ?HEAD WOOD GRINDER ThinPrep Vial Screening, Cervical ? 07/20/2023 2:43 PM CDT [facility] LABORATORY-C ENTRAL LABORATORY INTERPRETATION/ RESULT NEGATIVE FOR INTRAEPITHELIAL LESION OR MALIGNANCY (NIL) (none) 07/20/2023 2:43 PM CDT [facility] NISM(S) Fungal organisms morphologically consistent with [place] species 07/20/2023 2:43 PM CDT [facility] SPECIMEN ADEQUACY Satisfactory for evaluation Endocervical component present 07/20/2023 2:43 PM CDT [facility] HPV REQUEST HPV and PAP 07/20/2023 2:43 PM CDT [facility] Date of LMP 06/19/2023 07/20/2023 2:43 PM CDT [facility] Last Pap Date 06/10/2010 07/20/2023 2:43 PM CDT [facility] Last Pap Result NIL 2:43 PM CDT [facility] Abnormal Pap or [place] Bx in last 5 years No 07/20/2023 2:43 PM CDT [facility] [place] Bx Done Today No 07/20/2023 2:43 PM CDT [facility] Additional Information 07/20/2023 2:43 PM CDT [facility] Comment: Interpreted at [facility], Central Laboratory - [address] [place], [place] [address], [place] [address] Automated Review Successful 07/20/2023 2:43 PM CDT [facility] Comment:Specimen processed s uccessfully by automated manager online device, ThinPrep Imaging System, [employer] ANCILLARY TESTING HEAD WOOD GRINDER HPV Ordered, Please see separate report 07/20/2023 2:43 PM CDT [facility] Note The pap test is a screening technique, not a diagnostic procedure. It is used primarily to screen for squamous cancers and precursor lesions. Published studies have shown that it is subject to both false negative and false positive results. The pap test should not be used as the sole means to diagnose or exclude pre-malignant and malignant lesions. 07/20/2023 2:43 PM CDT [facility] Other (Cervical) 07/07/2023 12:45 PM CDT 07/08/2023 5:07 PM CDT Yazmin Adam NP PATHOLOGY/CYTOLOG Y [facility] [address] [place] [address] * HPV HIGH RISK (07/07/2023 12:45 PM CDT) TYPE 16 Negative Negative 07/10/2023 2:00 PM CDT [facility] TRAL LABORATORY TYPE 18 Negative Negative 07/10/2023 2:00 PM CDT [facility] TRA LABORATORY OTHER HIGH RISK TYPES Negative Negative 07/10/2023 2:00 PM CDT [facility] LAB[facility] Other (Cervical) 07/07/2023 12:45 PM CDT 07/08/2023 5:07 PM CDT Narrative [facility] - 07/10/2023 2:00 PM CDT HPV types 16, 18, 31, 33, 35, 39, 45, 51, 52, 56, 58, 59, 66 and 68 DNA were undetectable or below the pre-set threshold. Methodology: Oscar Trever 4800 HPV Test Yazmin Adam NP MICROBIOLOGY Performing Organization Address City/State/[facility] Co de Phone Number [facility] [address] [place] [address] * PATH TISSUE EXAM (07/07/2023 12:40 PM CDT) Case Report Pathology Report ?Case: [id number] ? Authorizing Provider: ??Yazmin Adam NP ?? Collected: ? 07/07/2023 1240 ? Ordering Location: ? [facility] ?Received: ?07/08/2023 1638 ? Pathologist: ? Wilber Jordan MD ? Specimen: ?Cervical ? 07/09/2023 4:33 PM CDT [facility] Final Diagnosis A) CERVIX, POLYPECTOMY: 1. Benign endocervical polyp with reactive changes 2. Negative for glandular neoplasia, squamous intraepithelial lesion and malignancy 07/09/2023 4:33 PM T [facility] Clinical Information Cervical polyp 07/09/2023 4:33 PM T [facility] Gross Description A) Received in formalin, labeled with the patient's name and date of , is a 2.0 x 0.8 x 0.5 cm davis soft to rubbery polyp. ??Apparent base is inked and polyp is sectioned. ??Additionally received in container is a 2.0 x 0.8 x 0.2 cm aggregate of clotted blood and mucus. ??The specimen is entirely submitted in 2 cassettes. TLF 07/08/2023 07/09/2023 4:33 PM CDT [facility] Microscopic Description The final diagnosis is based on microscopic examination of appropriate sections of all specimens. 07/09/2023 4:33 PM CDT [facility] Additional Information Interpreted at [facility], Central Laboratory - [address] [facility] [address], [place] [address] 07/09/2023 4:33 PM T [facility] Other (Cervical) 07/07/2023 12:40 PM CDT 07/08/2023 4:38 PM CDT Yazmin Adam VENDING MACHINE OPERATOR PATHOLOGY/CYTOLOG Y [facility] LABORATORY-CENTRAL LABORATORY [address] [address], [place] * ANTI HIV 1/2 (09/23/2006 4:15 PM CDT) ANTI HIV 1/2 Non-reacti ve [facility] Blood specimen (specimen) BLOOD SPECIMEN / Unknown 09/23/2006 4:15 PM CDT 09/23/2006 4:04 PM CDT Bronwyn Ham NP SEND OUTS [facility] LABOR[facility]ORY [place]NAL ZIP [id number] [address] from Last 3 Months or Most Recently Relevant to Health Maintenance Care Teams Counter Hop Relationship Specialty Start Date End Date Pcp, No . PCP - General 10/22/22
--- NOTE | 2023-07-24 11:15 | US_ITS ---
Patient: NOY HAGEN Facility:?[facility] RIS Patient ID:?[id number] Site Patient ID:?[id number] Site :?1975 Study:?US-Breast Right RT BREAST LMT / DR. ESCOBEDO TO READ-07/24/2023 11:38:23 AM Ordering Physician:?CORY QUEZADA Final Report: PLEASE SEE DIGITAL DIAGNOSTIC BILATERAL MAMMOGRAM PERFORMED SAME DAY CRL:dinesh montiel/Dictated by: Erwin Escobedo MD @ 07/24/2023 11:48:00 AM Signed by:?Erwin Escobdeo MD @07/24/2023 3:26:06 PM (Electronic Signature)
== END 2023-07-24 10:50 | disposition home or self-care (01) ==
LOC: MAMMO 10:50
PROVIDERS: PCP Family Medicine; Visit Provider Family Medicine
DX: N64.4 Mastodynia (principal)
CPT/HCPCS: 76642; 77066; T1013; G0279

== ENCOUNTER 2024-08-14 21:46 | Emergency (ER) | payer OTHER, SELFPAY ==
--- OUTSIDE RECORDS SUMMARY | 2024-08-14 21:47 | XMS_ITS | Clinical Summary ---
Author Organization [employer] [facility] Address [address] [place] [address] Care Team Providers Care Heading Saw Operator Name Role Phone Pcp, No Primary Care Provider Unavailabl e Allergies No known active allergies Medications VITAMIN TABIndications:Sup ervision of other normal (HC) take 1 tablet by oral route once daily 100 3 7 Active sucralfate (CARAFATE) 1 gram tablet Take 1 g by mouth. 3 Active pantoprazole (PROTONIX) 40 mg delayed-release tablet Take 40 mg by mouth once daily. 3 Active metFORMIN (GLUCOPHAGE XR) 500 mg Extended-Release tablet Take 1,000 mg by mouth two times daily. 4 Active celecoxib (CELEBREX) 200 mg capsuleIndications :Herniated nucleus pulposus, L5-S1 Take 1 Capsule (200 mg) by mouth two times daily with meals. 60 Capsule 2 4 Active gabapentin (NEURONTIN) 300 mg capsuleIndications :Lumbar radiculopathy Take 1 Capsule (300 mg) by mouth at bedtime. 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 Gender Identity Not on file Sexual Orientation Not on file Obstetrics History Para Term AB IAB SAB Ectopic Multiple Livin g Live Births 4 2 2 Date Outcome GA Total Labor Labor/2nd/3rd Weight Sex Type Anes PTL Yue A1 A5 Name Clin Para Para 991 40w 0d 4.8 kg (10 lb 9.3 oz) F Vag Livin g saadia Delivery Location:[facility] Comments:gave at home 998 32w 0d 2.5 kg (5 lb 8.2 oz) F C-Sec tion Livin g hortensia Delivery Location:[facility] Comments:low fluid Last Filed Vital Signs Vital Sign Reading Time Taken Comments Blood Pressure 113/75 09/25/2023 8:28 AM CDT Pulse 71 09/25/2023 8:28 AM CDT Temperature 36.6 C (97.9 F) 09/25/2023 8:28 AM CDT Respiratory Rate - - Oxygen Saturation 100% 09/25/2023 8:28 AM CDT Inhaled Oxygen Concentration - - Weight 79.1 kg (174 lb 6.4 oz) 08/20/2023 1:16 P M CDT Height 142.9 cm (4' 8.25) 10/02/2006 9:30 AM CD T Body Mass Index - - Plan of Treatment Health Maintenance Due Date Last Done Comments Tdap 1984 Depression screening for age 12+ 1985 BMI (ht and wt on same day) for age 18+ 07/28/1991 Hepatitis C screening for ag e 18-79 07/28/1991 Tetanus booster 1993 Colonoscopy through age 75 2018 Lipids for age 45-75 2018 Mammogram for age 45-75 2018 Pneumococcal series for age 50+ (1 of 1 - PCV) 07/28/2023 Zoster (shingles) series for age 50+ (1 of 2) 07/28/2023 COVID-19 vaccine series (2023- season) 2023 05/17/2021, 10/23/2020, 10/02/2020 Influenza Vaccine (Season Ended) 2024 Pap test for age 21-65 07/06/2026 , 07/07/2023, 06/10/2010, Additional history exists RSV vaccine for adults or (1 - 1-dose 75+ series) 2048 HIV for age 15-65 Completed 09/23/2006 Procedures Procedure Name Priority Date/Time Associated Diagnosis Comments HPV HIGH RISK Routine 07/07/2023 12:45 PM CDT ANTI HIV 1/2 Routine 09/23/2006 4:15 PM CDT Supervision Of Other Normal (Hc) from Last 3 Months or Most Recently Relevant to Health Maintenance Results * HPV HIGH RISK (07/07/2023 12:45 PM CDT) TYPE 16 Negative Negative 07/10/2023 2:00 PM CDT [facility] TRAL LABORATORY TYPE 18 Negative Negative 07/10/2023 2:00 PM CDT [facility] OTHER HIGH RISK TYPES Negative Negative 07/10/2023 2:00 PM CDT [facility] Other (Cervical) 07/07/2023 12:45 PM CDT 07/08/2023 5:07 PM CDT Narrative [facility] 07/10/2023 2:00 PM CDT HPV types 16, 18, 31, 33, 35, 39, 45, 51, 52, 56, 58, 59, 66 and 68 DNA were undetectable or below the pre-set threshold. Methodology: Oscar Trever 4800 HPV Test us Yazmin Adam NP MICROBIOLOGY Final Res ult [facility] [address] [place] [address], * ANTI HIV 1/2 (09/23/2006 4:15 PM CDT) ANTI HIV 1/2 Non-reacti ve [facility] Blood specimen (specimen) BLOOD SPECIMEN / Unknown 09/23/2006 4:15 PM CDT 09/23/2006 4:04 PM CDT us Bronwyn Ham NUTRITION THERAPIST SEND OUTS F inal Result [facility] INTERNAL ZIP [id number] [address] [address] from Last 3 Months or Most Recently Relevant to Health Maintenance Care Teams Heading Saw Operator Relationship Specialty Start Date End Date Pcp, No . PCP - General 10/22/22
[2024-08-14 21:52] VITALS: BP 140/74; PULSE 84; RESP 18; TEMP 36.9; O2SAT 100; BMI 40.4
--- OUTSIDE RECORDS SUMMARY | 2024-08-14 22:30 | XMS_ITS | Clinical Summary ---
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 Comments:gave at home 998 32w 0d 2.5 kg (5 lb 8.2 oz) F C-Sec tion Livin g hortensia Delivery Location:[facility] Comments:low fluid Last Filed Vital Signs Vital [...] 16 Negative Negative 07/10/2023 2:00 PM CDT [facility] TRAL LABORATORY TYPE 18 Negative Negative 07/10/2023 2:00 PM CDT [facility] OTHER HIGH RISK TYPES Negative Negative 07/10/2023 2:00 PM CDT [facility] Other (Cervical) 07/07/2023 12:45 PM CDT 07/08/2023 5:07 PM CDT Narrative [facility] - 07/10/2023 2:00 PM CDT HPV types 16, 18, 31, 33, 35, 39, 45, 51, 52, 56, 58, 59, 66 and 68 DNA were undetectable or below the pre-set threshold. Methodology: Oscar Trever 4800 HPV Test us Yazmin Adam NP MICROBIOLOGY Final Res ult [facility] [address] [place] [address], * ANTI HIV 1/2 (09/23/2006 4:15 PM CDT) ANTI HIV 1/2 Non-reacti ve [facility] Blood specimen (specimen) BLOOD SPECIMEN / Unknown 09/23/2006 4:15 PM CDT 09/23/2006 4:04 PM CDT us Bronwyn Ham METAPHYSICIST SEND OUTS F inal Result [facility] INTERNAL ZIP [phone] [address] from Last 3 Months or Most Recently Relevant to Health Maintenance Care Teams Stone Hand Relationship Specialty Start Date End Date Pcp, No . PCP - General 10/22/22
[2024-08-14] MEDS: GABAPENTIN 300 MG CAPSULE PO (22:31)
[2024-08-14] MEDS: KETOROLAC 30 MG/ML inj IM (22:31)
--- NOTE | 2024-08-14 22:48 | ED.BACK ---
HPI - Back Pain/Injury General Date Seen: 08/14/24 Chief Complaint: Back Injury/Pain Stated Complaint: right side back pain Time Seen by Provider: 08/14/24 21:53 Source: patient and family Mode of arrival: ambulatory Limitations: no limitations History of Present Illness HPI Narrative: Patient is a 49-year-old female with chronic back pain who presents here with increasing back pain in her back. She has had this now for many many years, underwent the T9 through L5 fusion in the past I believe from [place]. Has followed up regularly with primary care providers here both at [facility] Dr. Cheema and Dr. Porter with our system. Both her last seen in 2023, she was on gabapentin at 1.4 back pain, but has since stopped this she presents tonight with her daughter who translates for her, and says that she got a prescription for morphine in the past, that helped her pain denies any recent falls injury fevers chills or sweats bowel or bladder symptoms associated with just back pain. She finds Tylenol and/or ibuprofen really not helpful for this. I sense from her, that she does not follow up regularly, and she does not have a good grasp of her back pain. MD elicited complaint: back pain Pertinent past history: prior back pain and back surgery Work related injury: No Related Data Home Medications ?Medication ?Instructions ?Recorded ?Confirmed pantoprazole 40 mg tablet,delayed 40 mg PO DAILY 06/04/22 12/10/23 release oxycodone 5 mg capsule 5 mg PO Q6H PRN 07/07/23 12/10/23 Previous Rx's ?Medication ?Instructions ?Recorded celecoxib 200 mg capsule (Celebrex) 200 mg PO BID #60 caps 08/28/23 gabapentin 300 mg capsule See Rx Instructions PO BID #90 caps 08/28/23 metformin 500 mg tablet,extended 1,000 mg (2 x 500 mg) PO QDAY #60 08/28/23 release 24 hr tabs insulin NPH-regular 70-30 U-100 60 unit (0.6 mL) subcut BID #15 mL 02/17/24 insulin 100 unit/mL subcutaneous pen (Humulin 70/30 U-100 KwikPen) gabapentin 300 mg capsule 300 mg PO TID #90 caps 08/14/24 Allergies Allergy/AdvReac Type Severity Reaction Status Date / Time No Known Drug Allergies Allergy Verified 12/10/23 08:22 Review of Systems Status of ROS: Reports: 10 or more systems reviewed and unremarkable except as noted in History and below PFSH [facility] Medical History Major depression, recurrent ?F33.9 - Major depressive disorder, recurrent, unspecified (ICD-10) Breast pain ?N64.4 - Mastodynia (ICD-10) Type 2 diabetes mellitus, with long-term current use of insulin ?E11.9 - Type 2 diabetes mellitus without complications (ICD-10) ?Z79.4 - [facility] (current) use of insulin (ICD-10) Chronic low back pain ?M54.50 - Low back pain, unspecified (ICD-10) ?G89.29 - Other chronic pain (ICD-10) Uncontrolled type 2 diabetes mellitus with hyperglycemia ?E11.65 - Type 2 diabetes mellitus with hyperglycemia (ICD-10) Spinal stenosis ?M48.00 - Spinal stenosis, site unspecified (ICD-10) Gastroesophageal reflux disease ?K21.9 - Gastro-esophageal reflux disease without esophagitis (ICD-10) Exogenous obesity ?E66.09 - Other obesity due to excess calories (ICD-10) Surgical History H/O dilation and curettage ?Z98.890 - Other specified postprocedural states (ICD-10) History of lumbar fusion ?Z98.1 - Arthrodesis status (ICD-10) History of tubal ligation ?Z98.51 - Tubal ligation status (ICD-10) History of lumbar surgery ?Z98.890 - Other specified postprocedural states (ICD-10) History of laparoscopic cholecystectomy ?Z90.49 - Acquired absence of other specified parts of digestive tract (ICD-10) History of section ?Z98.891 - History of uterine scar from previous surgery (ICD-10) 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: , 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, 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, 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, 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 What is your current living situation?: I presently have a place to live Problems where you live: no known problems In the past 12 mos, have been you worried that your food would run out before you had money to buy more?: never true In the past 12 mos, the food you bought just didn't last and you didn't have money to buy more?: never true Smoking Status: Never smoker Do you use any of these nicotine containing products: None Second hand tobacco smoke exposure: No How often do you have a drink containing alcohol: never How often do you have six or more drinks on one occasion: Never AUDIT-C Alcohol total score: 0 Non-prescribed substance use: denies use service: No Exam Narrative: Exam Narrative: On examination in room 7 she is in no apparent distress she is able to stand up for me, forward flexion is somewhat tough for her, but she is able to come to the it least height of her knees, with forward flexion her backward extension is normal she localizes her pain over the long scar on the right side of her back. SLR is are negative to 90? bilaterally and she is able to come up a both on her toes and heels. Sensation is grossly normal in her lower extremities, she has some stick matted of diabetes with them areas on both of her feet bilaterally. Const: Vital Signs, click to edit/add: Vital Signs - 24 hr 08/14/24 21:52 Temperature 98.5 F Pulse Rate [Pulse Oximeter] 84 Respiratory Rate 18 Blood Pressure [Ri ght Upper Arm] 140/74 H Pulse Oximetry 100 Oxygen Delivery Me thod Room Air Documenting provider has reviewed patient's vital signs: yes Course Vital Signs Vital signs: Initial Vital Signs Temperature 98.5 F 08/14/24 21:52 Temperature Source Temporal Artery Scan 08/14/24 21:52 Pulse Rate 84 08/14/24 21:52 Pulse Rhythm Regular 08/14/24 21:52 Respiratory Rate 18 08/14/24 21:52 Blood Pressure 140/74 H 08/14/24 21:52 Blood Pressure Mean 96 08/14/24 21:52 Blood Pressure Position Sitting 08/14/24 21:52 Pulse Oximetry 100 08/14/24 21:52 Oxygen Delivery Method Room Air 08/14/24 21:52 Vital Signs Temperature 98.5 F 08/14/24 21:52 Pulse Rate 84 08/14/24 21:52 Respiratory Rate 18 08/14/24 21:52 Blood Pressure 140/74 H 08/14/24 21:52 Pulse Oximetry 100 08/14/24 21:52 Oxygen Delivery Method Room Air 08/14/24 21:52 Temperature 98.5 F 08/14/24 21:52 Pulse Rate 84 08/14/24 21:52 Respiratory Rate 18 08/14/24 21:52 Blood Pressure 140/74 H 08/14/24 21:52 Pulse Oximetry 100 08/14/24 21:52 Oxygen Delivery Method Room Air 08/14/24 21:52 Medications Administered Medications: Discontinued Medications Generic Name Dose Route Start Last Admin Trade Name Jt PRN Reason Stop Dose Admin Gabapentin 300 mg 08/14/24 22:14 08/14/24 22:31 Gabapentin 300 Mg Capsule PO 08/14/24 22:15 300 mg ONCE ONE Administration Ketorolac Tromethamine 30 mg 08/14/24 22:13 08/14/24 22:31 Ketorolac 30 Mg/Ml Inj IM 08/14/24 22:14 30 mg ONCE ONE Administration MDM - Back Pain/Injury MDM Narrative Medical decision making narrative: Life-threatening differential diagnosis considered include: Cauda equina an epidural abscess, other differential diagnosis considered includes sprain, contusion, nerve root entrapment, radiculopathy, muscle spasm, urolithiasis, lumbar fracture, pyelonephritis, appendicitis, biliary colic, as well as other etiologies. The patient denies saddle anesthesia bowel or bladder incontinence or lower extremity weakness, recent weight loss, or history of malignancy. His presentation is consistent with chronic back pain, and not acute issues. I reviewed the STAFF THERAPIST and she does not have any prescriptions re in the last year for any narcotics, she did get a prescription last year for gabapentin. I explained to her through shared decision making that I would be willing to give her prescription for gabapentin, and give her a dose tonight along with the injection of Toradol, but we would not give her any narcotic medications. She needs to follow up with primary care physicians for ongoing help with this, and she was comfortable with this. Differential Diagnosis Differential diagnosis: Likely lumbar radiculopathy, sciatica, strain of lumbar region, renal colic, pyelonephritis, thoracic back pain, AAA and discitis Medical Records Attestation: I reviewed the patient's medical records. Medical records narrative: Reviewed visits with [facility], through [facility], along with our system with her primary care physician Dr. Porter in previous ER visits for back pain Discharge Plan Discharge Clinical Impression: Chronic low back pain, Type 2 diabetes mellitus, with long-term current use of insulin Patient Disposition: Home w/ Parent or Adult Condition: Stable Instructions: Pain Management (ED), Chronic Pain (ED), Diabetes and Your Skin (ED) Additional Instructions: Home, rest, use of medication gabapentin as directed, remember you promise to follow up with primary care either Dr. Porter or someone else. Activity Level: Light activity Prescriptions: New gabapentin 300 mg capsule 300 mg PO TID Qty: 90 2RF No Action oxycodone 5 mg capsule 5 mg PO Q6H PRN pantoprazole 40 mg tablet,delayed release (DR/EC) 40 mg PO DAILY celecoxib [Celebrex] 200 mg capsule 200 mg PO BID Qty: 60 5RF gabapentin 300 mg capsule See Rx Instructions PO BID Qty: 90 5RF Rx Instructions: orally twice a day; 1 Qam and 2 QHS metformin 500 mg tablet extended release 24 hr 1,000 mg PO QDAY Qty: 60 5RF Humulin 70/30 U-100 KwikPen 100 unit/mL (70-30) insulin pen 60 unit subcut BID Qty: 15 0RF Follow Up/Referrals: Erwin Porter MD [Primary Care Provider] - Stand Alone Forms: [employer] Info Instructions
== END 2024-08-14 22:46 | disposition home or self-care (01) ==
PROVIDERS: Emergency Provider Family Medicine; PCP Family Medicine
DX: M54.50 Low back pain, unspecified (principal); G89.29 Other chronic pain; E11.9 Type 2 diabetes mellitus without complications; Z79.4 Long term (current) use of insulin
CPT/HCPCS: 96372; 99284; A9270; J1885

== ENCOUNTER 2024-09-25 21:10 | Emergency (ER) | payer OTHER, SELFPAY ==
--- OUTSIDE RECORDS SUMMARY | 2024-09-25 21:13 | XMS_ITS | Clinical Summary ---
Author Organization [facility] Address [address] [place] [id number] Care Team Providers Care Taxicab Dispatcher Name Role Phone Pcp, No Primary Care [...] 30 Capsule 3 4 Active Active Problems No known active problems Family History Medical History Relation Name Comments Genetic Other No CAD Relation Name Status Comments Father Mother Other Social History Tobacco Use Types Packs/Day Years Used Date Smoking Tobacco: Never Smokeless Tobacco: Never Tobacco Cessation:Counseling Given: Yes Alcohol Use Standard Drinks/Week Comments No 0 (1 standard drink = 0.6 oz pur e alcohol) Comments Unknown Sex and Gender Information Value Date Recorded Sex Assigned at Not on file Legal Sex Female 5:45 AM [employer] Gender Identity Not on file Sexual Orientation Not on file Obstetrics History Para Term AB IAB SAB Ectopic Multiple Livin g Live Births 4 2 2 Date Outcome GA Total Labor Labor/2nd/3rd Weight Sex Type Anes PTL Yue A1 A5 Name Clin Para Para 991 40w 0d 4.8 kg (10 lb 9.3 oz) F Vag Livin g saadia Delivery Location:[facility] Comments:gave at home 998 32w 0d 2.5 kg (5 lb 8.2 oz) F C-Sec tion Livin g hortensia Delivery Location:[facility] Comments:low fluid Last Filed Vital Signs [...] C screening for ag e 18-79 07/28/1991 Hepatitis B series for 19+ ( 1 of 3 - 19+ 3-dose series) 1992 Tetanus booster 1993 Colonoscopy through age 75 2018 Lipids for age 45-75 2018 Mammogram for age 45-75 2018 Pneumococcal series for age 50+ (1 of 1 - PCV) 07/28/2023 Zoster (shingles) series for age 50+ (1 of 2) 07/28/2023 COVID-19 vaccine series ( season) 2023 05/17/2021, 10/23/2020, 10/02/2020 Influenza Vaccine (Season Ended) 2024 Pap test for age 21-65 07/06/2026 , 07/07/2023, 06/10/2010, Additional history exists HIV for age 15-65 Completed 09/23/2006 Procedures Procedure Name Priority Date/Time Associated Diagnosis Comments HPV HIGH RISK Routine 07/07/2023 12:45 PM CDT ANTI HIV 1/2 Routine 09/23/2006 4:15 PM CDT Supervision Of Other Normal (Hc) from Last 3 Months or Most Recently Relevant to Health Maintenance Results * HPV HIGH RISK (07/07/2023 12:45 PM CDT) TYPE 16 Negative Negative 07/10/2023 2:00 PM CDT [facility] TYPE 18 Negative Negative 07/10/2023 2:00 PM CDT [facility] OTHER HIGH RISK TYPES Negative Negative 07/10/2023 2:00 PM CDT [facility] Other (Cervical) 07/07/2023 12:45 PM CDT 07/08/2023 5:07 PM CDT Narrative [facility] - 07/10/2023 2:00 PM CDT HPV types 16, 18, 31, 33, 35, 39, 45, 51, 52, 56, 58, 59, 66 and 68 DNA were undetectable or below the pre-set threshold. Methodology: Oscar Trever 4800 HPV Test us Yazmin Adam [employer] Final Res ult [facility] [address] [place] [address], * ANTI HIV 1/2 (09/23/2006 4:15 PM CDT) ANTI HIV 1/2 Non-reacti ve [facility] Blood specimen (specimen) BLOOD SPECIMEN / Unknown 09/23/2006 4:15 PM CDT 09/23/2006 4:04 PM CDT Bronwyn Ham NP SEND OUTS F inal Result [facility] INTERNAL ZIP [id number] [id number] from Last 3 Months or Most Recently Relevant to Health Maintenance Care Teams Taxicab Dispatcher Relationship Specialty Start Date End Date Pcp, No . PCP - General 10/22/22
[2024-09-25 21:26] VITALS: BP 136/77; PULSE 89; RESP 20; TEMP 37.1; O2SAT 98
--- NOTE | 2024-09-25 21:47 | CRLHL7_ITS ---
For Patients: As a result of the Century Cures Act, medical imaging exams and procedure reports are released immediately into your electronic medical record. You may view this report before your referring provider. If you have questions, please contact your health care provider. Indication: Lesions on top of foot, base of the 4th metatarsal, navicula Technique: Three views of the left foot Comparison: None Findings/Impression: Mild soft tissue swelling, no acute fracture or malalignment appreciated. Contrast-enhanced MRI, CT, or ultrasound could be considered for further evaluation depending on what lesions are reportedly present and what pathology there is clinical concern for. Dictated by Pedro Eden MD @ 09/25/2024 10:14:19 PM (Electronically Signed)
--- NOTE | 2024-09-25 21:50 | ED.GENADULT ---
HPI - General Adult General Date Seen: 09/25/24 Chief complaint: Unspecified Complaint, Adult Stated complaint: Foot Pain and swelling on Left Time Seen by Provider: 09/25/24 21:12 Source: patient and economic research analyst Mode of arrival: ambulatory Limitations: no limitations History of Present Illness HPI narrative: Patient is a 49-year-old female with a history of poorly-controlled diabetes presenting to the emergency department for lesions to the top of her foot. She has lesions on both feet but there were some of left foot. She has pain in swelling to that foot. She states the lesions have been there for 4 years and she has seen her doctor before for it it was given a cream that did not help. Over the past 5 days the lesions on her left foot have more than doubled in size. Previously they are small about a cm in diameter and now the largest at the base of the 4th metatarsals about 2-3 cm in size. Also has a 2 cm lesion above her navicular bone and a 3rd smaller lesion near the lateral cuneiform. These ever painful to the touch she states. It hurts to walk. Does not having any numbness to the foot. Has not noticed any lesions to the bottom of her foot. No other concerns noted. Denies fevers, chills, weakness, numbness, headache, abdominal pain, diarrhea, constipation. Related Data Home Medications ?Medication ?Instructions ?Recorded ?Confirmed pantoprazole 40 mg tablet,delayed 40 mg PO DAILY 06/04/22 12/10/23 release oxycodone 5 mg capsule 5 mg PO Q6H PRN 07/07/23 12/10/23 Previous Rx's ?Medication ?Instructions ?Recorded celecoxib 200 mg capsule (Celebrex) 200 mg PO BID #60 caps 08/28/23 gabapentin 300 mg capsule See Rx Instructions PO BID #90 caps 08/28/23 metformin 500 mg tablet,extended 1,000 mg (2 x 500 mg) PO QDAY #60 08/28/23 release 24 hr tabs insulin NPH-regular 70-30 U-100 60 unit (0.6 mL) subcut BID #15 mL 02/17/24 insulin 100 unit/mL subcutaneous pen (Humulin 70/30 U-100 KwikPen) gabapentin 300 mg capsule 300 mg PO TID #90 caps 08/14/24 Allergies Allergy/AdvReac Type Severity Reaction Status Date / Time No Known Drug Allergies Allergy Verified 12/10/23 08:22 Review of Systems Status of ROS: Reports: 10 or more systems reviewed and unremarkable except as noted in History and below PFSH PFS Medical History Major depression, recurrent ?F33.9 - Major depressive disorder, recurrent, unspecified (ICD-10) Breast pain ?N64.4 - Mastodynia (ICD-10) Type 2 diabetes mellitus, with long-term current use of insulin ?E11.9 - Type 2 diabetes mellitus without complications (ICD-10) ?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.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 (ICD-10) Chronic low back pain ?M54.50 - Low back pain, unspecified (ICD-10) ?G89.29 - Other chronic pain (ICD-10) Uncontrolled type 2 diabetes mellitus with hyperglycemia ?E11.65 - Type 2 diabetes mellitus with hyperglycemia (ICD-10) Spinal stenosis ?M48.00 - Spinal stenosis, site unspecified (ICD-10) Gastroesophageal reflux disease ?K21.9 - Gastro-esophageal reflux disease without esophagitis (ICD-10) Exogenous obesity ?E66.09 - Other obesity due to excess calories (ICD-10) Surgical History H/O dilation and curettage ?Z98.890 - Other specified postprocedural states (ICD-10) History of lumbar fusion ?Z98.1 - Arthrodesis status (ICD-10) History of tubal ligation ?Z98.51 - Tubal ligation status (ICD-10) History of lumbar surgery ?Z98.890 - Other specified postprocedural states (ICD-10) History of laparoscopic cholecystectomy ?Z90.49 - Acquired absence of other specified parts of digestive tract (ICD-10) History of section ?Z98.891 - History of uterine scar from previous surgery (ICD-10) 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: , 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, 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, 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, 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 What is your current living situation?: I presently have a place to live Problems where you live: no known problems In the past 12 mos, have been you worried that your food would run out before you had money to buy more?: never true In the past 12 mos, the food you bought just didn't last and you didn't have money to buy more?: never true Smoking Status: Never smoker Do you use any of these nicotine containing products: None Second hand tobacco smoke exposure: No How often do you have a drink containing alcohol: never How often do you have six or more drinks on one occasion: Never AUDIT-C Alcohol total score: 0 Non-prescribed substance use: denies use service: No Exam Narrative: Exam Narrative: Const: OB, in mild distress Eyes: PERRL, no conjunctival injection, and symmetrical lids HENT: Atraumatic external nose and ears. Moist mucous membranes. Neck: Symmetric, trachea midline, No thyromegaly. CVS: RRR, No murmurs or gallops. Peripheral pulses 2+ and equal in all extremities RESP: Unlabored respiratory effort. Clear to auscultation bilaterally. GI: Nontender/Nondistended, No rebound or guarding. MSK:Extremities w/o deformity, Normal Active ROM Skin: Warm, Dry. No rashes or lesions. Hyperpigmented center with a depigmented outer border lesion. 3 x 3.5 cm lesion at the base of the 4th metatarsal going in between the toes. 3 x 2.5 cm lesion in the mid cuneiform area. 1.5 x 1 cm lesion near the navicular bone. All in dorsal aspect. Multiple more seen on the right foot but much smaller Neuro: Normal Muscle tone, No focal neurological deficits. Psych: Awake, Alert, & Oriented x3. Appropriate mood and affect. Const: Vital Signs, click to edit/add: Vital Signs - 24 hr 09/25/24 21:26 09/25/24 23:08 Temperature 98.7 F 97.3 F L Pulse Rate [Left P ulse Oximeter] 89 90 Respiratory Rate 20 18 Blood Pressure [Ri ght Forearm] 136/77 146/85 H Pulse Oximetry 98 96 Oxygen Delivery Me thod Room Air Room Air Course Vital Signs Vital signs: Initial Vital Signs Temperature 98.7 F 09/25/24 21:26 Temperature Source Temporal Artery Scan 09/25/24 21:26 Pulse Rate 89 09/25/24 21:26 Respiratory Rate 20 09/25/24 21:26 Blood Pressure 136/77 09/25/24 21:26 Blood Pressure Mean 96 09/25/24 21:26 Blood Pressure Position Sitting 09/25/24 21:26 Pulse Oximetry 98 09/25/24 21:26 Oxygen Delivery Method Room Air 09/25/24 21:26 Vital Signs Temperature 98.7 F 09/25/24 21:26 Pulse Rate 89 09/25/24 21:26 Respiratory Rate 20 09/25/24 21:26 Blood Pressure 136/77 09/25/24 21:26 Pulse Oximetry 98 09/25/24 21:26 Oxygen Delivery Method Room Air 09/25/24 21:26 Temperature 97.3 F L 09/25/24 23:08 Pulse Rate 90 09/25/24 23:08 Respiratory Rate 18 09/25/24 23:08 Blood Pressure 146/85 H 09/25/24 23:08 Pulse Oximetry 96 09/25/24 23:08 Oxygen Delivery Method Room Air 09/25/24 23:08 Medications Administered Medications: Discontinued Medications Generic Name Dose Route Start Last Admin Trade Name Jt PRN Reason Stop Dose Admin Lactated Ringer's 1,000 mls @ 1,000 mls/hr 09/25/24 21:47 09/25/24 23:31 Lactated Ringers 1000 Ml IV 09/25/24 22:46 Infused .Q1H ONE Infusion Morphine Sulfate 4 mg 09/25/24 21:47 09/25/24 22:21 Morphine 4 Mg/Ml Inj IVP 09/25/24 21:48 4 mg ONCE ONE Administration Medical Decision Making MDM Narrative Medical decision making narrative: Patient is a 49-year-old female presenting to the emergency department for left foot pain and swelling. The lesions on her foot do not look like diabetic foot ulcers but hard to say if there might possibly be some underlying osteomyelitis. This would seem unusual without having the ulcers but she does have poorly controlled diabetes. They also do not look like fungal infections. Emerging not sure was causing this. I do not believe the swelling is from a DVT as it is localized around the lesions. Will order an ESR, CRP, CBC, BMP. Will do an x-ray of the foot in give her some fluids as a part of her blood sugars 460 for a give her some morphine for pain. Lab work shows no concerning abnormalities. ESR and CRP are slightly elevated but do not appear high enough for me be concerned about osteomyelitis at this time. Her pain did improve with the morphine. She does have a glucose of 431 and was given of the L of fluids. Also given 10 units of insulin for her diabetes. X-ray returned showing no obvious abnormalities. There is some soft tissue swelling. This time I cannot say for certain what is causing the symptoms for labs are none concerning. I believe she is safe for discharge. She does have a primary care provider in the area that she states she can follow-up with. I will start her on some antibiotics and pain medication. Lab Data Labs: Lab Results 09/25/24 Range/Units 22:04 WBC 3.16 L (4.50-11.00) K/uL RBC 4.95 (4.00-5.20) m/uL Hgb 12.5 (12.0-16.0) gm/dL Hct 37.0 (33.0-51.0) % MCV 75 L (80-100) fL MCH 25 L (26-34) pg MCHC 34 (32-36) gm/dL RDW Coeff of Kamilla 15.7 H (11.5-15.5) % Plt Count 94 L (140-440) K/uL Neut % (Auto) 59.9 (42.0-72.0) % Lymph % (Auto) 25.6 (20-44) % Waller % (Auto) 11.7 H (0.0-11.0) % Eos % (Auto) 1.3 (0.0-7.0) % Baso % (Auto) 0.6 (0.0-3.0) % Neut # (Auto) 1.90 (1.7-7.0) K/uL Lymph # (Auto) 0.80 L (0.90-2.90) K/uL Waller # (Auto) 0.40 (0.00-0.90) K/UL Eos # (Auto) 0.00 (0.00-0.50) K/uL Baso # (Auto) 0.00 (0.00-0.30) K/uL Abs Immat Gran (auto) 0.00 (0.00-0.30) K/uL Imm/Tot Granulo (auto) 0.9 % ESR 30 H (2-20) mm/hr Sodium 135 (135-149) mmol/L Potassium 3.5 L (3.6-5.1) mmol/L Chloride 100 (96-114) mmol/L Carbon Dioxide 27 (20-32) mmol/L Anion Gap 8 (7-15) mEq/L BUN 11 (7-30) mg/dL Creatinine 0.5 (0.5-1.5) mg/dL Estimated GFR 113 ml/min Glucose 431 H* (60-115) mg/dL Calcium 9.2 (8.4-10.6) mg/dL C-Reactive Protein 1.8 H (0.5-1.0) mg/dL Imaging Data Foot x-ray: Attestation: I have reviewed the pertinent imaging results. Radiologist's impression: Mild soft tissue swelling, no acute fracture or malalignment appreciated. Contrast-enhanced MRI, CT, or ultrasound could be considered for further evaluation depending on what lesions are reportedly present and what pathology there is clinical concern for. Dictated by Pedro Eden MD @ 09/25/2024 10:14:19 PM Discharge Plan Discharge Clinical Impression: Foot pain, left Patient Disposition: Home, Self-Care Condition: Stable Additional Instructions: I cannot say for certain if these wounds or infectious or not but I will start her on antibiotics. I do recommend close follow-up with your primary care provider. If symptoms are getting worse return for re-evaluation. Antibiotics and pain medication sent via instymeds Prescriptions: No Action oxycodone 5 mg capsule 5 mg PO Q6H PRN pantoprazole 40 mg tablet,delayed release (DR/EC) 40 mg PO DAILY celecoxib [Celebrex] 200 mg capsule 200 mg PO BID Qty: 60 5RF gabapentin 300 mg capsule See Rx Instructions PO BID Qty: 90 5RF Rx Instructions: orally twice a day; 1 Qam and 2 QHS metformin 500 mg tablet extended release 24 hr 1,000 mg PO QDAY Qty: 60 5RF gabapentin 300 mg capsule 300 mg PO TID Qty: 90 2RF Humulin 70/30 U-100 KwikPen 100 unit/mL (70-30) insulin pen 60 unit subcut BID Qty: 15 0RF Follow Up/Referrals: Erwin Porter MD [Primary Care Provider, Family Practice] Stand Alone Forms: MyHealth Info Instructions
[2024-09-25] MEDS: MORPHINE 4 MG/ML INJ IVP (22:21)
[2024-09-25 22:22] LABS: Chloride* 100 mmol/L (96-114); Potassium* 3.5 mmol/L (3.6-5.1); Sodium* 135 mmol/L (135-149)
[2024-09-25] MEDS: LACTATED RINGERS 1000 ML 1,000 ML IV (22:23)
[2024-09-25 22:26] LABS: Anion Gap 8 mEq/L (7-15); Blood Urea Nitrogen* 11 mg/dL (7-30); Calcium* 9.2 mg/dL (8.4-10.6); Carbon Dioxide* 27 mmol/L (20-32); Creatinine* 0.5 mg/dL (0.5-1.5); Estimated Glomerular Filt Rate 113 ml/min
[2024-09-25 22:29] LABS: C Reactive Protein* 1.8 mg/dL (0.5-1.0)
[2024-09-25 22:31] LABS: Basophils Percent Auto 0.6 % (0.0-3.0); Eosinophils Percent Auto 1.3 % (0.0-7.0); Hemoglobin* 12.5 gm/dL (12.0-16.0); Immature Granulocytes Pct Auto 0.9 %; Lymphocytes Percent Auto 25.6 % (20-44); Mean Corpuscular HGB Conc 34 gm/dL (32-36); Mean Corpuscular Hemoglobin 25 pg (26-34); Mean Corpuscular Volume 75 fL (80-100); Monocytes Percent Auto 11.7 % (0.0-11.0); Neutrophils Percent Auto 59.9 % (42.0-72.0); Platelet Count* 94 K/uL (140-440); RDW Coefficient of Variation % 15.7 % (11.5-15.5); Red Blood Count 4.95 m/uL (4.00-5.20); Slide Review Reflex No; White Blood Count* 3.16 K/uL (4.50-11.00)
[2024-09-25 22:33] LABS: Glucose* 431 mg/dL (60-115)
[2024-09-25 23:08] VITALS: BP 146/85; PULSE 90; RESP 18; TEMP 36.3; O2SAT 96
[2024-09-25 23:15] LABS: Erythrocyte SedimentationRate* 30 mm/hr (2-20)
[2024-09-25] MEDS: INSULIN REGULAR, HUMAN 100 UNIT/ML VIAL 10 UNIT IVP (23:58)
== END 2024-09-26 00:22 | disposition home or self-care (01) ==
PROVIDERS: Emergency Provider Student in an Organized Health Care Education/Training Program; PCP Family Medicine
DX: M79.672 Pain in left foot (principal)
CPT/HCPCS: 36415; 73630; 80048; 85025; 85651; 86140; 96374; 99284; J2270; J7120

== ENCOUNTER 2025-03-08 07:43 | Outpatient (CLI) | payer OTHER, SELFPAY ==
--- NOTE | 2025-03-08 07:45 | CRLHL7_ITS ---
For Patients: As a result of the Cures Act, medical imaging exams and procedure reports are released immediately into your electronic medical record. You may view this report before your referring provider. If you have questions, please contact your health care provider. BILATERAL DIGITAL SCREENING MAMMOGRAM WITH COMPUTER-AIDED DETECTION AND TOMOSYNTHESIS CLINICAL HISTORY: Routine screening exam. COMPARISON: Mammogram 07/24/2023 and 02/04/2022. TECHNIQUE: Digital mammogram in CC and MLO projections including computer-aided detection (CAD) and tomosynthesis. BREAST COMPOSITION: There are scattered areas of fibroglandular density. FINDINGS: RIGHT Breast: There is an asymmetry in the lateral breast, middle depth. LEFT Breast: No suspicious findings. IMPRESSION: RIGHT breast asymmetry. RECOMMENDATIONS: Additional mammographic views of the RIGHT breast including 90-degree lateral and spot compression CC. RIGHT breast ultrasound may also be required. The [facility] will contact the patient for follow-up. A lay language report of this examination will be provided to the patient. BI-RADS Category 0: Incomplete: Need Additional Imaging Evaluation Dictated by Roz Edge MD @ 03/10/2025 12:44:12 PM /sp SP/Dictated by: Roz Edge MD @ 03/10/2025 12:44:00 PM (Electronically Signed)
== END 2025-03-08 07:44 | disposition home or self-care (01) ==
LOC: MAMMO 07:44
PROVIDERS: PCP Internal Medicine; Visit Provider Internal Medicine
DX: Z12.31 Encounter for screening mammogram for malignant neoplasm of breast (principal); N63.10 Unspecified lump in the right breast, unspecified quadrant
CPT/HCPCS: 77063; 77067; T1013

== ENCOUNTER 2025-03-20 10:52 | Outpatient (CLI) | payer OTHER, SELFPAY ==
--- NOTE | 2025-03-20 12:57 | P.ANES_ITS ---
Anesthesia Charges Start Date/Time Anesthesia Start Date: 03/20/25 Anesthesia Start Time: 12:28 Stop Date/Time Anesthesia Stop Date: 03/20/25 Anesthesia Stop Time: 12:54 Coding CPT Codes CPT Codes: ANES LWR INTST NDSC NOS - 92957 ([id number]) P3 - PATIENT W/SEVERE SYS DISEASE, QK - ELECTRIC POWER LINE EXAMINER 2-4 CNCRNT ANES PROC
--- NOTE | 2025-03-20 12:57 | W.ANESCHARGE ---
Anesthesia Charges Start Date/Time Anesthesia Start Date: 03/20/25 Anesthesia Start Time: 12:28 Stop Date/Time Anesthesia Stop Date: 03/20/25 Anesthesia Stop Time: 12:54 Coding CPT Codes CPT Codes: ANES LWR INTST NDSC NOS - 41041 ([id number]) P3 - PATIENT W/SEVERE SYS DISEASE, QK - METER SETTER 2-4 CNCRNT ANES PROC
--- NOTE | 2025-03-20 13:20 | P.ANES_ITS ---
Anesthesia Charges Start Date/Time Anesthesia Start Date: 03/20/25 Anesthesia Start Time: 12:28 Stop Date/Time Anesthesia Stop Date: 03/20/25 Anesthesia Stop Time: 12:54 Coding CPT Codes CPT Codes: ANES LWR INTST NDSC NOS - 32301 ([id number]) QK - DANCE HALL HOST/HOSTESS 2-4 CNCRNT ANES PROC, QX - END STAPLER SVC W/ MED DIRECTION, P3 - PATIENT W/SEVERE SYS DISEASE
--- NOTE | 2025-03-20 13:20 | W.ANESCHARGE ---
Anesthesia Charges Start Date/Time Anesthesia Start Date: 03/20/25 Anesthesia Start Time: 12:28 Stop Date/Time Anesthesia Stop Date: 03/20/25 Anesthesia Stop Time: 12:54 Coding CPT Codes CPT Codes: ANES LWR INTST NDSC NOS - 08460 ([id number]) QK - FERRYBOAT OPERATOR 2-4 CNCRNT ANES PROC, QX - APPLICATIONS SYSTEMS ANALYST SVC W/ MED DIRECTION, P3 - PATIENT W/SEVERE SYS DISEASE
== END 2025-03-20 10:53 | disposition home or self-care (01) ==
LOC: OP CLINIC 10:55
PROVIDERS: PCP Internal Medicine; Visit Provider Surgery
DX: Z12.11 Encounter for screening for malignant neoplasm of colon (principal); K63.89 Other specified diseases of intestine
CPT/HCPCS: 00811; 00812; 45380; T1013; J2704

== ENCOUNTER 2025-03-21 10:26 | Outpatient (CLI) | payer OTHER, SELFPAY ==
--- NOTE | 2025-03-21 10:45 | CRLHL7_ITS ---
For Patients: As a result of the Cures Act, medical imaging exams and procedure reports are released immediately into your electronic medical record. You may view this report before your referring provider. If you have questions, please contact your health care provider. DIGITAL DIAGNOSTIC RIGHT MAMMOGRAM USING TOMOSYNTHESIS RIGHT BREAST ULTRASOUND CLINICAL HISTORY: RIGHT breast mass/asymmetry. COMPARISON: 03/08/2025. TECHNIQUE: Digital RIGHT mammogram in two projections. Tomosynthesis was used in this interpretation. Real-time ultrasound imaging of RIGHT breast with imaging documentation. BREAST COMPOSITION: There are scattered areas of fibroglandular density. FINDINGS: Additional mammogram images RIGHT breast submitted. Decreased conspicuity of previously noted asymmetric density. No architectural distortion or suspicious calcifications. Targeted RIGHT breast ultrasound performed. At 10 o`clock 5 cm from the nipple there is a small cyst present at mid depth which measures 3 x 3 x 3 mm. No solid mass. IMPRESSION: No suspicious findings. No evidence of malignancy. RECOMMENDATIONS: Routine screening mammography. A lay language report of this examination will be provided to the patient. BI-RADS Category 2: Benign Dictated by Erwin Rausch MD @ 03/21/2025 11:28:40 AM jj/Dictated by: Erwin Rausch MD @ 03/21/2025 11:28:00 AM (Electronically Signed)
--- NOTE | 2025-03-21 11:15 | CRLHL7_ITS ---
For Patients: As a result of the Cures Act, medical imaging exams and procedure reports are released immediately into your electronic medical record. You may view this report before your referring provider. If you have questions, please contact your health care provider. SEE DIGITAL DIAGNOSTIC RIGHT MAMMOGRAM PERFORMED SAME DAY CRL:dinesh montiel/Dictated by: Erwin Rausch MD @ 03/21/2025 11:41:00 AM (Electronically Signed)
== END 2025-03-21 10:27 | disposition home or self-care (01) ==
LOC: MAMMO 10:26
PROVIDERS: PCP Internal Medicine; Visit Provider Internal Medicine
DX: N63.10 Unspecified lump in the right breast, unspecified quadrant (principal); R92.8 Other abnormal and inconclusive findings on diagnostic imaging of breast
CPT/HCPCS: 76642; 77065; T1013; G0279